=== PATIENT | male | born 1955 | race Caucasian/White ===

== ENCOUNTER 2017-11-10 19:13 | Inpatient (IN) ==
[2017-11-10 20:04] VITALS: BMI 40.5
[2017-11-10] MEDS ORDERED: DOCUSATE SODIUM 100 MG CAPSULE PO PRN (20:35)
[2017-11-10] MEDS ORDERED: ONDANSETRON 4 MG/2 ML INJECTION IVP PRN (20:35)
[2017-11-10] MEDS ORDERED: VANCOMYCIN - PHARMACY CONSULT MC ONE (20:38)
[2017-11-10] MEDS ORDERED: GLUCOSE ORAL GEL 40% 37.5gm PO PRN (20:40)
[2017-11-10] MEDS ORDERED: DEXTROSE 50% SYRINGE 50ml (1 AMP) IVP PRN (20:40)
--- NOTE | 2017-11-10 21:00 | History & Physical Report ---
History of Present Illness Date: 11/11/17 Chief complaint: left leg cellulitis, diabetic foot ulcer HPI: Denzel is a 62 y/o w/ DM, HTN, HLD, CAD s/p stents x 2 who presents to [facility] via direct admission from wound clinic. Patient had left foot treatment last Wed and on Wednesday/Sat started having pain and swelling in left foot which has progressed despite Rocephin and keflex on Wednesday. Patient denies cp, soa, f/c /s, n/v and other constitutional symptoms. Painful to walk Will admit to Hospitalist service for IV Abx and wound care and supportive care. Review of Systems All systems PM: 10-point ROS was reviewed, no additional remarkable complaints except Past Medical History Patient Stated Medical History Migraine Yes Hearing Loss Yes Hypertension Yes Asthma Yes Diabetes Mellitus Type 2 Yes: STEROID INDUCED Osteoarthritis Yes Other Infectious Yes: [facility] Medical History (Last Reviewed 11/10/17 @ 15:41 by Jesse Weiss MA) Osteoarthritis of knee (Chronic Medical) Asthma (Chronic Medical) Obesity (Chronic Medical) Hyperlipidemia (Chronic Medical) Hypertension (Chronic Medical) Diabetes (Chronic Medical) CAD (coronary artery disease) (Chronic Medical) Surgical History: Right knee scope-2004 (Dr. Johnson). L4-L5 diskectomy-2010 ( Dr. Mesfin Parker). Heart cath & angioplasty of left circumflex (01/05/14). Right TKA - 01/29/14. Arthroscopic surgery on Left Knee on 09/07/2014 Family History Updates: Mother w/ h/o DM - Social History Smoking status: Former smoker Medications Home Medications Medication Instructions Recorded Confirmed Type Liraglutide [Victoza 3-Damon] 1.8 mg SQ DAILY #9 12/10/14 11/10/17 History Krill Oil/[place]-3/Dha/Epa [Fish 1 cap PO DAILY #0 12/11/14 History Oil with Krill Softgel] Aspirin 1 tab PO DAILY #0 tab 08/13/15 11/10/17 History raNITIdine HCl [Ranitidine HCl] 150 mg PO DAILY #0 tab 08/13/15 11/10/17 History Insulin Degludec [Tresiba 104 units SQ .COMPLEX 11/10/17 11/10/17 History Flextouch U-200] Naproxen [Aleve] 440 mg PO DAILY 11/10/17 11/10/17 History Allergies Allergy/AdvReac Type Severity Reaction Status Date / Time Iodinated Contrast- Oral and AdvReac Unknown N/V Verified 11/11/17 00:11 IV Dye Exam Vital Signs: Temperature 98.6 F 11/10/17 19:40 Pulse Rate 93 11/10/17 19:40 Respiratory Rate 18 11/10/17 19:40 Blood Pressure 148/74 H 11/10/17 19:40 Pulse Oximetry 94 11/10/17 19:40 Height/Weight/BMI: Height 1.91 m Weight 147.2 kg Body Mass Index 40.5 - Constitutional Present: no acute distress, well nourished, well developed - Routine HEENT Exam Head: Present: normocephalic, atraumatic - Routine Neck Exam Present: supple, full ROM. Absent: JVD - Routine Respiratory Exam Present: CTA bilaterally. Absent: accessory muscle use, respiratory distress - Routine Cardiovascular Exam Present: RRR - Routine Abdominal Exam Present: soft, normoactive bowel sounds, non distended, non tender - Routine Extremities Exam Absent: cyanosis, clubbing - Routine Skin Exam Comments: left foot w/ swelling, warmth and erythema beyond previous demarcation to ankle and somewhat posteriorly proximally to lower tibial shaft area; small superficial ulcer left plantar surface. - Routine Neurological Exam Present: alert, oriented X3, CN II-XII intact - Routine Psychiatric Exam Present: normal affect, normal thought process Results - Labs CBC & Chem 7: 11/11/17 04:02 11/11/17 04:02 Assessment and Plan Assessment and Plan: Assessment 1) Acute Left leg cellulitis 2) Left foot diabetic ulcer 3) DM insulin requiring 4) HTN 5) HLD 6) CAD 7) Asthma Plan: Wound care Zosyn Vancomycin - pharm to manage Carb consistent diet Correctional insulin Home meds as indicated Pain meds - po and IV for breakthrough Prn Colace Hypoglycemic protocol Prn Albuterol I have discussed the plan w/ the patient and he verbalized understanding. 11/11/2017, 6:50 PM-Dr. Feldman I seen and examined the patient. I've reviewed the H&P above and agree. Please see my additions below. Chief complaint is infection of left foot with pain History of present illness: Patient is a pleasant 8-year-old male with poorly controlled diabetes. Has coronary artery disease and had a stent placed in 2015 or 2016. He is currently on aspirin daily. He has had a wound on the left fifth metatarsal head since September. He has been seeing his primary care physician, Dr. Nevarez but last week was referred to the wound care center. Last Wednesday he had the left foot wound debrided and also had a smaller right foot wound on his right great toe debrided. Cultures from the left fifth metatarsal head showed MSSA and strep viridans. Cultures from the right foot revealed MSSA and coag-negative staph. On he developed increased pain in the left foot and his pain progressively worsened over the weekend. He saw his primary care physician on Wednesday and he had erythema and swelling of the foot. He was given a shot of Rocephin and started on Keflex. Yesterday his foot was not doing any better and was extending beyond the marked areas of cellulitis. He was then advised to come in for admission. He was admitted last night and started on vancomycin and Zosyn. Today while receiving Zosyn he did have a pruritic rash on his left shoulder and chest. Zosyn was discontinued. He denies any fevers chills or sweats. He denies any chest pains or palpitations. He has history of asthma but his breathing is stable. He has some chronic constipation. He states his blood sugars are usually in the 190s fasting and thinks that is his average blood sugar nonfasting as well. Past medical history is reviewed and agree with above-he did have a cardiac angiogram and balloon in 2012 and then a stent in [address] Martinez Surgical history reviewed and agree Family history reviewed and agree Social history significant for him being a former smoker Medications reviewed and agree Allergies are to IV contrast, possible allergic reaction with rash to penicillin today Comprehensive review of systems is significant for some mild constipation which is chronic. Otherwise comprehensive review of systems is negative other than the above in history of present illness. On exam the patient is alert and oriented and in no acute distress. HEENT reveals sclerae to be anicteric, pupils are equal, or paroxysmal moist. Neck is supple. Chest is clear to auscultation. Cardiovascular reveals a regular rate and rhythm. Abdomen is soft, obese, nontender nondistended with positive bowel sounds. Extremities are free of clubbing or cyanosis. Right foot reveals an area of ulceration about the size of a nickel on his right great toe. Left foot reveals an ulcer about the size of a dime on the left fifth metatarsal head. There is some serosanguineous/mildly purulent drainage. There is erythema and swelling of the foot with erythema mostly on the dorsum of the foot. It does not extend into the leg. His foot is tender to touch and has increased warmth. He states the tenderness and swelling is better today than yesterday. Impression Left infected diabetic foot wound with cellulitis. MSSA and strep viridans on culture from November 03 Right foot wound without obvious signs of infection Poorly controlled diabetes Coronary artery disease-stable Asthma-stable on current medications Possible allergic reaction with rash to penicillin, no difficulties breathing or blood pressure issues. Plan Zosyn was discontinued because of possible allergic reaction. Dr. Cruz was consulted for diabetic foot wound, she recommends cefazolin. We'll repeat CBC and basic metabolic profile tomorrow. Check C-reactive protein tomorrow. Dr. Kennedy was consulted for wound evaluation and to determine if debridement is needed. Continue the patient's home medications for asthma. Resume NovoLog with meals. Will give Lantus in place of treseba Hold the toes of for now but may need to start if blood sugars are not well- controlled. Hold Aleve case patient needs surgical treatment Lovenox for DVT prophylaxis DVT Prophylaxis: SCD's Resuscitation Status: Full Code - Time spent with patient Time with patient PN: 50 minutes - Physician Narrative Physician: Josselyn Ferreira MD Narrative: Date: 11/10/17 Time: 2056 Hospital Course Summary Disclaimer: The visit summary below is not to be considered part of the above Progress Note.
[2017-11-10] MEDS ORDERED: VANCOMYCIN IV ONE (21:11)
[2017-11-10] MEDS ORDERED: NS IV ONE (21:11)
[2017-11-10] MEDS: NS FLUSH BAG 500ml IV PRN (21:27)
[2017-11-10] MEDS: SALINE FLUSH 10ml SYRINGE IV PRN (21:27)
[2017-11-10] MEDS: MORPHINE SULFATE 4mg INJECTION IVP PRN (21:28)
[2017-11-10] MEDS: PIPERACILLIN/TAZOBACTAM 3.375 GM in NS 100 ML IV SCH (21:32)
[2017-11-10] MEDS: INSULIN ASPART 100unit/ml INJECTION SQ PRN (21:51)
[2017-11-10] MEDS ORDERED: ALBUTEROL 2.5mg/3ml (0.083%) NEB AEROSOL PRN (22:07)
[2017-11-10] MEDS: OXYCODONE/APAP 7.5 MG/325 MG TABLET PO PRN (23:57)
[2017-11-11] MEDS: PIPERACILLIN/TAZOBACTAM 3.375 GM in NS 100 ML IV SCH ×3 (02:04→15:38)
[2017-11-11] MEDS ORDERED: CALCIUM CARBONATE Chewable 750mg TABLET PO PRN ×2 (02:23→15:45)
[2017-11-11] MEDS: MORPHINE SULFATE 4mg INJECTION IVP PRN ×2 (03:04→21:35)
[2017-11-11] MEDS: SALINE FLUSH 10ml SYRINGE IV PRN (03:04)
[2017-11-11] MEDS: INSULIN ASPART 100unit/ml INJECTION SQ PRN ×4 (06:12→21:36)
[2017-11-11] MEDS: OXYCODONE/APAP 7.5 MG/325 MG TABLET PO PRN ×4 (06:13→20:19)
[2017-11-11] MEDS: LEVOTHYROXINE 50 MCG TABLET PO SCH (07:18)
--- NOTE | 2017-11-11 07:57 | Pharmacy Consult-Antibiotics ---
Pharmacy Consult-Vancomycin - Laboratory Information WBC 10.8 T/MM3 (4.5-11.0) 11/11/17 04:02 BUN 14.0 MG/DL (9-20) 11/11/17 04:02 Creatinine 1.0 MG/DL (0.8-1.5) 11/11/17 04:02 - Consult Information Consult noted by Dr Conteh to begin vancomycin therapy on Mr Gonzalez, who is 62 years old and weighs 147kg. He as good renal function and has a diagnosis of a left leg cellulitis. A loading dose of vancomycin 2 grams was given last night. Will begin vancomycin 1500mg IV q8h this morning. Thank you.
[2017-11-11] MEDS ORDERED: NAPROXEN 220 MG TABLET PO SCH (09:00)
[2017-11-11] MEDS ORDERED: LEVOTHYROXINE 50 MCG TABLET PO SCH (09:00)
[2017-11-11] MEDS: RANITIDINE 150 MG TABLET PO SCH (09:04)
[2017-11-11] MEDS: ASPIRIN 81 MG CHEWABLE TABLET PO SCH (09:04)
[2017-11-11] MEDS: MONTELUKAST 10 MG TABLET PO SCH (09:04)
[2017-11-11] MEDS ORDERED: DiphenhydrAMINE 25 MG CAPSULE PO ONE (16:17)
[2017-11-11] MEDS ORDERED: INSULIN DEGLUDEC SQ SCH (18:30)
[2017-11-11] MEDS: INSULIN ASPART 100unit/ml INJECTION SQ SCH (18:38)
[2017-11-11] MEDS ORDERED: CIPROFLOXACIN PB 400 MG/200 ML BAG IV SCH (18:45)
[2017-11-11] MEDS: CEFAZOLIN 2 G in NS 100 ML IV SCH (20:13)
[2017-11-11] MEDS: POLYETHYL GLYCOL 3350 17gm PACKET PO SCH (20:15)
[2017-11-11] MEDS: INSULIN GLARGINE 100unit/ml INJECTION SQ SCH (21:02)
[2017-11-11] MEDS: SIMVASTATIN 20 MG TABLET PO SCH (21:04)
[2017-11-11] MEDS: ZOLPIDEM 10 MG TABLET PO PRN (21:50)
[2017-11-12] MEDS: CEFAZOLIN 2 G in NS 100 ML IV SCH ×3 (02:40→17:47)
[2017-11-12] MEDS: OXYCODONE/APAP 7.5 MG/325 MG TABLET PO PRN ×5 (04:21→21:50)
[2017-11-12] MEDS: LEVOTHYROXINE 50 MCG TABLET PO SCH (05:42)
[2017-11-12] MEDS: INSULIN ASPART 100unit/ml INJECTION SQ PRN ×2 (05:47→21:20)
[2017-11-12] MEDS: ASPIRIN 81 MG CHEWABLE TABLET PO SCH (08:33)
[2017-11-12] MEDS: FENOFIBRATE 160 MG TABLET PO SCH (08:34)
[2017-11-12] MEDS: FEXOFENADINE 180 MG TABLET PO SCH (08:34)
[2017-11-12] MEDS: MONTELUKAST 10 MG TABLET PO SCH (08:34)
[2017-11-12] MEDS: RANITIDINE 150 MG TABLET PO SCH (08:34)
[2017-11-12] MEDS: INSULIN ASPART 100unit/ml INJECTION SQ SCH ×4 (08:35→18:38)
[2017-11-12] MEDS: INSULIN GLARGINE 100unit/ml INJECTION SQ SCH ×2 (08:35→21:20)
[2017-11-12] MEDS: ENOXAPARIN 40 MG/0.4 ML INJECTION SQ SCH (08:35)
[2017-11-12] MEDS: POLYETHYL GLYCOL 3350 17gm PACKET PO SCH (08:35)
--- NOTE | 2017-11-12 09:03 | Progress Note ---
- Date 11/12/17 Subjective: Denzel states that he was able to get "cat naps" last night. He took an Ambien to try to help him sleep b/c the first night he didn't sleep at all. He's mostly upset about his diet - he states that he tried to order the same thing as yesterday but they wouldn't let him. He feels like since he's stuck in the hospital he should be able to order what he wants and eat what he wants. He reported to the nurse that he was bored with the dietitian yesterday and doesn' t want to talk to her again. He does state however that his left foot is looking better, and the redness and swelling is improving. No fevers. He has chronic neuropathy to his feet and can only feel a little bit of pain to his left foot when pressure is applied in the right spot. Objective Vital signs: Temperature 97.8 F 11/12/17 08:19 Pulse Rate 71 11/12/17 08:19 Respiratory Rate 16 11/12/17 08:19 Blood Pressure 146/68 H 11/12/17 08:19 Pulse Oximetry 92 11/12/17 08:19 Height/Weight/BMI: Height 1.91 m Weight 149.9 kg Body Mass Index 40.5 - Constitutional Present: no acute distress, morbidly obese - Routine HEENT Exam Head: Present: normocephalic Eye: Absent: conjunctival icterus, scleral injection - Routine Respiratory Exam Present: CTA bilaterally - Routine Cardiovascular Exam Present: RRR, S1, S2 - Routine Abdominal Exam Present: soft, normoactive bowel sounds, non distended, non tender - Routine Extremities Exam Comments: Left foot has erythema slightly extending beyond the marked line; it is very warm to touch. It is mildly swollen. There is a dressing to his left 5th toe/ base of the 5th MT. There is also a dressing applied to his right great toe. - Routine Back/Spine/Pelvis Exam Back/Spine: Present: full ROM - Routine Skin Exam Present: dry, warm, wounds (Diabetic foot wounds) - Routine Neurological Exam Present: alert, oriented X3 - Routine Psychiatric Exam Present: normal affect, normal thought process, cooperative Results - Labs CBC & Chem 7: 11/12/17 04:19 11/12/17 04:19 Assessment and Plan Assessment and Plan: Assessment Left infected diabetic foot wound with cellulitis. MSSA and strep viridans on culture from November 03 Right foot wound without obvious signs of infection Poorly controlled diabetes with hgb A1c of 9.1% Coronary artery disease, HTN, hyperlipidemia - stable Asthma - stable on current medications Possible allergic reaction with rash to penicillin, no difficulties breathing or blood pressure issues. Plan Continue cefazolin per Dr. Cruz. WBC normal but CRP is elevated at 89. Awaiting Dr. Kennedy's recommendations for wound management. Discussed rationale for carbohydrate controlled diet and controlling blood sugars - pt is not interested in discussing options with dietitian. Daily kcal increased from 2000 to 2400. BGM are consistently elevated so will increase long and short-acting insulin slightly. 11/12/2017-9:20 PM-I reviewed this chart, the patient history, and the SENIOR POLICY ANALYST's/PA 's documented findings as above. We discussed and formulated the assessment and plan as above with the additions below.-Dr. Feldman Patient was seen earlier this evening. The erythema of his left foot is decreased compared to yesterday. It is not as bright red. His foot is a little less swollen. He denies any shortness of breath or chest pain. He is eating and drinking well. He is urinating without difficulty. On exam he is alert and oriented and in no acute distress. Chest is clear to auscultation. Cardiac vascular reveals a regular rate and rhythm. Abdomen is soft and nontender. Left foot shows decreased edema and erythema compared to yesterday. Foot wound is dressed and I did not remove the dressing this evening. Lab work was reviewed and white count is 9.6 with 4% bands and 59% neutrophils. A1c is 9.1. Blood sugars today have ranged from 96-212 showing improved control. C-reactive protein is 89.2. MRI of the foot was limited due to a metallic foreign body in the lateral plantar soft tissue. Despite this limitation there does appear to be osteomyelitis involving the fifth metatarsal head and potentially the proximal phalanx of the fifth toe. Impression and plan Regarding the patient's diabetic foot wound infection, cellulitis, probable osteomyelitis-Dr. Kennedy plans on taking the patient to surgery on Wednesday. Dr. Cruz did see the patient and recommends cephalexin, vancomycin was discontinued. Asthma is stable. Blood sugars show improved control today. DVT Prophylaxis: Lovenox GI Prophylaxis: Rantidine Resuscitation Status: Full Code - Physician Narrative Narrative: Date: 11/12/17 Time: 0859 Hospital Course Summary Disclaimer: The visit summary below is not to be considered part of the above Progress Note. Hospital Course: 11/12/[address] Cruz. WBC normal but CRP is elevated at 89. Awaiting Dr. Kennedy's recommendations for wound management. Discussed rationale for carbohydrate controlled diet and controlling blood sugars - pt is not interested in discussing options with dietitian. Daily kcal increased from 2000 to 2400. BGM are consistently elevated so will increase long and short-acting insulin slightly.
--- NOTE | 2017-11-12 09:35 | Infectious Disease Consult ---
Infectious Disease Consult Date of Consultation: 11/12/17 Requesting Physician: Josselyn Feldman Reason for Consultation: antibiotic recs History of Present Illness: Mr. Gonzalez is a 62-year-old diabetic man who reports that he has had a wound on the left lateral foot near the base of his fifth metatarsal since 09/17/2017. He also has had a wound on the right great toe for some time as well. He says primary care physician in October about these wounds. He had an x-ray done of his feet on 10/26/2017. There was no obvious osteomyelitis. The x-ray of the left foot showed a small metallic foreign object in the lateral portion of his foot. He was seen in the wound clinic at [facility] on November [address] Rice. Both wounds were cultured and they both grew out methicillin susceptible staph aureus with some other skin booker noted. He reports that after the left foot wound was debrided he developed increased redness pain and swelling there. He was seen by his primary doctor on Wednesday and given Rocephin as well as Keflex. He continued to have redness and swelling in his foot. He was admitted to [facility] on Wednesday, November 10. He tells me that he prefer to be admitted somewhere and [place] however all of the hospitals there were full. On admission his white blood cell count was normal. He has not had fever or chills. He was initially started on vancomycin and Zosyn. Yesterday he was noted to have a diffuse erythematous rash on his trunk and upper extremities which was thought to be due to the Zosyn. The patient tells me that he thinks his rash was because he was not given his Barb yesterday. I spoke with Dr. Feldman yesterday evening and she reviewed his wound cultures. I recommended Ancef. He continues on vancomycin as well. The redness on the left foot is improving. He states that he did not have any redness that extended beyond his ankle area. He reports numbness in his lower extremities related to his diabetes however he does have pain and tenderness near this wound. He tells me that he is not happy with his current diet. Per records he was not willing to discuss a diabetic diet with the dietitian. He apparently has a history of being on chronic prednisone for 20 years for asthma and subsequently has developed diabetes. Medications Home Medications Medication Instructions Recorded Confirmed Type Liraglutide [Victoza 3-Damon] 1.8 mg SQ DAILY #9 12/10/14 11/10/17 History Krill Oil/[place]-3/Dha/Epa [Fish 1 cap PO DAILY #0 12/11/14 History Oil with Krill Softgel] Aspirin 1 tab PO DAILY #0 tab 08/13/15 11/10/17 History raNITIdine HCl [Ranitidine HCl] 150 mg PO DAILY #0 tab 08/13/15 11/10/17 History Insulin Degludec [Tresiba 104 units SQ .COMPLEX 11/10/17 11/10/17 History Flextouch U-200] Naproxen [Aleve] 440 mg PO DAILY 11/10/17 11/10/17 History Allergies Allergy/AdvReac Type Severity Reaction Status Date / Time Iodinated Contrast- Oral and AdvReac Unknown N/V Verified 11/11/17 00:11 IV Dye PFS Patient Stated Medical History Migraine Yes Hearing Loss Yes Hypertension Yes Asthma Yes Diabetes Mellitus Type 2 Yes: STEROID INDUCED Osteoarthritis Yes Other Infectious Yes: [facility] Medical History (Last Reviewed 11/10/17 @ 15:41 by Jesse Weiss MA) Osteoarthritis of knee (Chronic Medical) Asthma (Chronic Medical) Obesity (Chronic Medical) Hyperlipidemia (Chronic Medical) Hypertension (Chronic Medical) Diabetes (Chronic Medical) CAD (coronary artery disease) (Chronic Medical) Surgical History: Right knee scope-2004 (Dr. Johnson). L4-L5 diskectomy-2010 ( Dr. Mesfin Martínez). Heart cath & angioplasty of left circumflex (01/05/14). Right TKA - 01/29/14. 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 Absent: arthralgias - Integumentary/Breasts Integumentary: Present: rash (yesterday, pruritic, now improved) - Neurological Neurological: Present: numbness (LEs). Absent: headache(s) - Allergic/Immunologic Allergic/Immunologic: Present: other (seasonal allergies) Exam Vital Signs: Temperature 97.8 F 11/12/17 08:19 Pulse Rate 71 11/12/17 08:19 Respiratory Rate 16 11/12/17 08:19 Blood Pressure 146/68 H 11/12/17 08:19 Pulse Oximetry 92 11/12/17 08:19 Height/Weight/BMI: Height 1.91 m Weight 149.9 kg Body Mass Index 40.5 - Constitutional Present: no acute distress, well nourished, well developed - Routine HEENT Exam Head: Present: normocephalic, atraumatic Eye: Present: EOMI, PERRL ENT: Present: mucous membranes moist, oropharynx clear, dentition normal - Routine Neck Exam Present: supple - Routine Respiratory Exam Present: CTA bilaterally - Routine Cardiovascular Exam Present: RRR - Routine Abdominal Exam Present: soft, normoactive bowel sounds, non distended, non tender. Absent: rebound, guarding - Routine Extremities Exam Present: edema (1+ L foot/ankle). Absent: cyanosis, clubbing - Routine Skin Exam Present: intact, rash (mild, resolving rash on upper extremities) Comments: Superficial wound R great toe, which looks clean, without signs of infection. No surrounding edema. L foot has edema and he has a wound on the plantar surface of the 5th MT head with purulence and erythema. He has erythema extending up over his L foot, but not extending to ankle or lower leg. - Routine Neurological Exam Present: alert, oriented X3, CN II-XII intact. Absent: motor deficit - Routine Psychiatric Exam Present: normal affect Results - Labs CBC & Chem 7: 11/12/17 04:19 11/12/17 04:19 Impression: diabetic foot infection L foot with cellulitis. S/p debridement on 11/03/17. Wound culture 11/03 with MSSA, S. viridans. X-ray 10/26 L foot with small metallic object (?staple) but this is located more posterior than where his wound is. Diabetic foot infection R great toe, appears superficial. Wound culture with MSSA from 11/03. DM II, IR Obesity Hypothyroidism Asthma with h/o prolonged prednisone use S/p R TKA Rash yesterday presumed secondary to Zosyn Recommendation: Would continue Ancef and elevate L foot. He still has a lot of erythema and tenderness. Agree with surgery consult. I will order an MRI to evaluate for osteomyelitis. Discussed with Dr. Feldman.
[2017-11-12] MEDS ORDERED: GADOTERIDOL 279.3mg/ml - 10ml vial IVP ONE (10:59)
[2017-11-12] MEDS ORDERED: SALINE FLUSH 10ml SYRINGE ONE (10:59)
[2017-11-12] MEDS: MORPHINE SULFATE 4mg INJECTION IVP PRN (11:48)
--- NOTE | 2017-11-12 12:02 | Magnetic Resonance Report ---
Indication: diabetic wound infection PROCEDURE: MR foot LT wo/w con: Encounter: Initial Comparison: Left foot radiographs dated October 26, 2017 Technique: Multiplanar multisequence MR imaging of the left foot was performed with and without contrast. Contrast: 30 mL ProHance Findings: The metallic foreign body in the lateral plantar soft tissues, causes artifact, disrupting the normal magnetic field and limiting fat suppression in the lateral mid foot area. Unfortunately this is in the area of clinical concern. Despite this limitation there does appear to be abnormal T1 hypointense, T2 hyperintense signal and enhancement within the fifth metatarsal head and proximal phalanx of the fifth toe. There is adjacent soft tissue swelling and edema. The remaining bone marrow signal intensity is grossly normal. No acute fracture identified. The flexor and extensor tendons are grossly intact. Postcontrast images show no evidence of ring-enhancing abscess. There is significant plantar soft tissue thickening and induration below the fifth metatarsophalangeal joint. Impression: Limited exam due to the metallic foreign body in the lateral plantar soft tissues. Despite this limitation there does appear to be osteomyelitis involving the fifth metatarsal head and potentially the proximal phalanx of the fifth toe. .
--- NOTE | 2017-11-12 13:06 | General Surgery Consult Note ---
Consult date: 11/12/17 Attending Physician: Josselyn Feldman MD Reason for consult: wound care [facility] Patient Stated Medical History Migraine Yes Hearing Loss Yes Hypertension Yes Asthma Yes Diabetes Mellitus Type 2 Yes: STEROID INDUCED Osteoarthritis Yes Other Infectious Yes: [facility] Medical History (Last Reviewed 11/10/17 @ 15:41 by Jesse Weiss MA) Osteoarthritis of knee (Chronic Medical) Asthma (Chronic Medical) Obesity (Chronic Medical) Hyperlipidemia (Chronic Medical) Hypertension (Chronic Medical) Diabetes (Chronic Medical) CAD (coronary artery disease) (Chronic Medical) Surgical History: Right knee scope-2004 (Dr. Johnson). L4-L5 diskectomy-2010 ( Dr. Mesfin Martínez). Heart cath & angioplasty of left circumflex (01/05/14). Right TKA - 01/29/14. 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 Medications Home Medications Medication Instructions Recorded Confirmed Type Liraglutide [Victoza 3-Damon] 1.8 mg SQ DAILY #9 12/10/14 11/10/17 History Krill Oil/[place]-3/Dha/Epa [Fish 1 cap PO DAILY #0 12/11/14 History Oil with Krill Softgel] Aspirin 1 tab PO DAILY #0 tab 08/13/15 11/10/17 History raNITIdine HCl [Ranitidine HCl] 150 mg PO DAILY #0 tab 08/13/15 11/10/17 History Insulin Degludec [Tresiba 104 units SQ .COMPLEX 11/10/17 11/10/17 History Flextouch U-200] Naproxen [Aleve] 440 mg PO DAILY 11/10/17 11/10/17 History Allergies Allergy/AdvReac Type Severity Reaction Status Date / Time Iodinated Contrast- Oral and AdvReac Unknown N/V Verified 11/11/17 00:11 IV Dye Review of Systems 10-point ROS: negative except for HPI and the following: - General General: Present: fever - Respiratory Respiratory: Present: other (seasonal allergies) - Musculoskeletal Musculoskeletal: Present: other (foot pain, difficult to walk) - Vital Signs Last Vital Signs Temp 97.8 F 11/12/17 08:19 Pulse 71 11/12/17 08:19 Resp 16 11/12/17 08:19 BP 146/68 H 11/12/17 08:19 Pulse Ox 92 11/12/17 08:19 - Laboratory Result Diagrams: 11/12/17 04:19 11/12/17 04:19 General Surgery Results - Results Labs: 11/12/17 04:19 11/12/17 04:19 Hospital Course Summary Disclaimer: The visit summary below is not to be considered part of the above Progress Note. Hospital Course: 11/12/[address] Cruz. WBC normal but CRP is elevated at 89. Awaiting Dr. Kennedy's recommendations for wound management. Discussed rationale for carbohydrate controlled diet and controlling blood sugars - pt is not interested in discussing options with dietitian. Daily kcal increased from 2000 to 2400. BGM are consistently elevated so will increase long and short-acting insulin slightly.
--- NOTE | 2017-11-12 17:48 | Consultation ---
DATE OF CONSULTATION 11/12/2017 FINDINGS Mr. Gonzalez is a 62-year-old gentleman whom I was asked to see today as a result of a left diabetic foot ulcer. The patient was very unhappy upon entering his room. He informed me that his "foot was fine until the wound care cut on his foot." Upon further questioning the patient he actually informs me that this process began in September of last year. The patient states that he began to notice that there was some drainage coming forth from the left foot at that time. Patient states that he then had sought out medical attention and was seen through our wound center here at [facility]. Apparently he had undergone some form of a debridement in the recent past. Patient states that shortly after this debridement his "foot got really bad." Patient states that the foot began to "swell and become quite red and painful in nature." Patient states that it is quite painful to ambulate. PAST MEDICAL HISTORY, PAST SURGICAL HISTORY, MEDICATIONS, ALLERGIES, SOCIAL HISTORY, FAMILY HISTORY, REVIEW OF SYSTEMS Performed by my nurse practitioner, Dallas Cameron APRN. PHYSICAL EXAMINATION GENERAL: Mr. Gonzalez is a 62-year-old gentleman who did not appear to be in acute distress but was definitely not in very good spirits when seen earlier today on rounds. VITAL SIGNS: Temperature 98.3, pulse 61, respirations 18, blood pressure 135/67 , SAO2 94% on room air. HEENT: Normocephalic. Pupils are equally round and react to light and accommodation. CHEST: Clear to auscultation bilaterally. HEART: Regular rate and rhythm. Normal S1 and S2 without gallops, murmurs or clicks. ABDOMEN: Palpation of the abdomen reveals it to be soft and nontender. I do not appreciate any evidence for hepatosplenomegaly nor abnormal masses. EXTREMITIES: Attention was focused to the left foot. There was significant erythema and edema involving the lateral aspect of the left foot. Upon visualization one see a small opening overlying the fifth metatarsal head. The patient was exquisitely tender. With just simply placing a hand gently on the skin the patient would complain of severe pain. I was able to stick a Q-tip within this open wound and advance it towards the fifth metatarsal head. The patient complained of severe pain and therefore examination was somewhat limited but I could feel as if I was probing the fifth metatarsal head. There did appear to be some necrotic material within the open wound. There did not appear to be an underlying abscess cavity and the wound was clearly draining on its own behalf through this opening that was on the order about 8 mm in diameter upon the plantar aspect of the foot overlying the fifth metatarsal head. Medial aspect of the foot was without evidence for marked erythema nor tenderness. Upon palpation the patient was found have a quite strong dorsalis pedis pulse. Foot was warm to touch. NEURO: Cranial nerves II-XII grossly intact. Patient is without focal motor or sensory deficits. LABORATORY/RADIOGRAPHIC EVALUATION The patient had a CBC yesterday and today. White count yesterday was 10.8. White count today remains stable at 9.6. CMP was obtained today and his glucose was elevated at 175. HgA1c was elevated 9.1. The patient did have an MRI of his foot to rule out osteomyelitis. One could see a metallic foreign body within the lateral plantar soft tissues. This did limit the examination as a result of artifact. Despite this limitation there does appear to be a component of osteomyelitis involving the fifth metatarsal head and potentially the proximal phalanx of the fifth toe. I am uncertain whether or not the patient had a silver dressing placed within the open wound prior to his MRI. ASSESSMENT 62-year-old gentleman with left diabetic foot ulcer most likely containing foreign body. Patient with probable associated osteomyelitis. PLAN Will request that tomorrow morning the nursing staff remove dressing from left foot and proceed by obtaining a plain film of the left foot to better delineate the exact location of this reported foreign body. Recommend continuing with ongoing antibiotics for osteomyelitis. Infectious Disease has seen the patient and has given forth antibiotic recommendations. The patient is on Ancef at this time. It does appear that vancomycin has been discontinued from reviewing the DEC. From a surgical standpoint I would recommend that on Wednesday we proceed with exploration of this left diabetic foot ulcer and proceed with excisional surgical debridement as indicated and removal of foreign body. Would recommend continuing with ongoing antibiotics over the course of this weekend. ROCK
[2017-11-12] MEDS: SIMVASTATIN 20 MG TABLET PO SCH (21:26)
[2017-11-13] MEDS: CEFAZOLIN 2 G in NS 100 ML IV SCH ×3 (00:57→17:22)
[2017-11-13] MEDS: ZOLPIDEM 10 MG TABLET PO PRN (00:58)
[2017-11-13] MEDS: LEVOTHYROXINE 50 MCG TABLET PO SCH (07:03)
[2017-11-13] MEDS: POLYETHYL GLYCOL 3350 17gm PACKET PO SCH (09:00)
[2017-11-13] MEDS: ENOXAPARIN 40 MG/0.4 ML INJECTION SQ SCH (09:00)
[2017-11-13] MEDS: FEXOFENADINE 180 MG TABLET PO SCH (09:01)
[2017-11-13] MEDS: RANITIDINE 150 MG TABLET PO SCH (09:01)
[2017-11-13] MEDS: ASPIRIN 81 MG CHEWABLE TABLET PO SCH (09:01)
[2017-11-13] MEDS: FENOFIBRATE 160 MG TABLET PO SCH (09:01)
[2017-11-13] MEDS: ACETAMINOPHEN 325 MG TABLET PO PRN (09:01)
[2017-11-13] MEDS: OXYCODONE/APAP 7.5 MG/325 MG TABLET PO PRN ×2 (09:02→20:05)
[2017-11-13] MEDS: MONTELUKAST 10 MG TABLET PO SCH (09:02)
[2017-11-13] MEDS: INSULIN ASPART 100unit/ml INJECTION SQ SCH ×3 (10:12→16:36)
[2017-11-13] MEDS: INSULIN GLARGINE 100unit/ml INJECTION SQ SCH ×2 (10:18→20:01)
--- NOTE | 2017-11-13 11:20 | Progress Note ---
- Date 11/13/17 Subjective: 62 y/o male with DM, HTN, HLD, CAD s/p stents x 2 who presents to [facility] on via direct admission from wound clinic. Patient had left foot treatment last Wed and on Wednesday/Sat started having pain and swelling in left foot which has progressed despite Rocephin and keflex on Wednesday. Patient denies cp, soa , f/c/s, n/v and other constitutional symptoms. Painful to walk. Pt admitted to Hospitalist service for IV Abx and wound care and supportive care. 11/12/17: Denzel states that he was able to get "cat naps" last night. He took an Ambien to try to help him sleep b/c the first night he didn't sleep at all. He's mostly upset about his diet - he states that he tried to order the same thing as yesterday but they wouldn't let him. He feels like since he's stuck in the hospital he should be able to order what he wants and eat what he wants. He reported to the nurse that he was bored with the dietitian yesterday and doesn' t want to talk to her again. He does state however that his left foot is looking better, the redness and swelling is improving. No fevers. He has chronic neuropathy to his feet and can only feel a little bit of pain to his left foot when pressure is applied in the right spot. This morning he is complaining of a hot flash. He states he's a bit sweaty. He denies any chills. He also has a headache and has recently been given something for that. He does report that it is getting better. His pain in his foot is tolerable at present. He denies shortness of breath or chest pain. He does have intermittent nausea. He has not had any vomiting. He states this is all because he's out of his routine. He did have a bowel movement yesterday. Objective Vital signs: Temperature 98.4 F 11/13/17 08:51 Pulse Rate 69 11/13/17 08:51 Respiratory Rate 11/13/17 08:51 Blood Pressure 141/73 H 11/13/17 08:51 Pulse Oximetry 93 11/13/17 08:51 Height/Weight/BMI: Height 1.91 m Weight 151.9 kg Body Mass Index 40.5 Comments: Gen: alert and oriented. NAD. Conversive Skin: warm and moist, Left foot wound is erythematous and swollen. HEENT: NC/AT PERRL, EOMI, Sclera,lids and conjunctiva wnl. MMM. OP clear. Neck: supple. No JVD. Carotids 2+ without bruits Lungs: clear. No rales, rhonchi or wheezes CV: regular rate and rhythm. No murmur, rub or gallop No edema. Pedal pulses are good Abd: Obese, soft. +BS. NT/ND MS: Good strength and ROM. Neuro: no focal deficit. Results - Labs CBC & Chem 7: 11/12/17 04:19 11/12/17 04:19 Assessment and Plan Assessment and Plan: Assessment and Plan: 1. Left infected diabetic foot wound with cellulitis. -MSSA and strep viridans on culture from November 03 -Dr. Cruz consulted.-recommend Cefazolin started 11/11/17. -Dr. Kennedy consulted-Plan to take to OR on Wednesday for I&D. -MRI on 11/12/17: Impression: Limited exam due to the metallic foreign body in the lateral plantar soft tissues. Despite this limitation there does appear to be osteomyelitis involving the fifth metatarsal head and potentially the proximal phalanx of the fifth toe. -CRP 89 on 11/12/17. 2. Right foot wound without obvious signs of infection 3. Poorly controlled diabetes with hgb A1c of 9.1% -On Lantus 52 units BID -On Novolog 30 units with meals. 4. Coronary artery disease -h/o stents -On asa, statin 5. HTN -fairly well controlled on Metoprolol 25mg BID. 6. Hyperlipidemia -On statin and fenofibrate 7. Asthma -stable on current medications 8. Possible allergic reaction with rash to penicillin, no difficulties breathing or blood pressure issues. 9. Prophylaxis -Lovenox 40mg SQ daily -Zantac 150mg daily - Physician Narrative Narrative: Date: 11/13/17 Time: 1117 Hospital Course Summary Disclaimer: The visit summary below is not to be considered part of the above Progress Note. Hospital Course: 11/12/[address] Cruz. WBC normal but CRP is elevated at 89. Awaiting Dr. Kennedy's recommendations for wound management. Discussed rationale for carbohydrate controlled diet and controlling blood sugars - pt is not interested in discussing options with dietitian. Daily kcal increased from 1999 to 2400. BGM are consistently elevated so will increase long and short-acting insulin slightly.
--- NOTE | 2017-11-13 12:20 | Progress Note ---
DATE 11/13/2017 HISTORY The patient does continue to have some pain in his left foot. The patient did undergo some plain x-rays of the left foot this morning to try to demonstrate a foreign body. The patient states that the pain is worse since he has had the x- rays. PHYSICAL EXAMINATION VITAL SIGNS: Temperature is 98.4 degrees Fahrenheit oral. Pulse is 69. Respiratory rate is 18. Blood pressure is 141/73. Oxygen saturation is 93% on room air. EXTREMITIES: The patient does have redness and swelling at the lateral aspect of the left foot. There is an ulcer at the plantar surface of the left foot beneath the fifth metatarsal head. LABORATORY DATA White blood cell count was 9600 with 4 bands yesterday. IMAGING DATA The patient did have an MRI of the left foot on 11/12/2017. This does appear to demonstrate a metallic foreign body in the lateral plantar soft tissues. Despite this limitation, there does appear to be some osteomyelitis involving the fifth metatarsal head and possibly the proximal phalanx of the fifth toe. IMPRESSION 1. Cellulitis at left foot. 2. Ulcer at plantar surface of the left foot beneath the fifth metatarsal head. 3. Metallic foreign body at lateral plantar surface of left foot demonstrated on 11/12/2017 MRI of the left foot. 4. Possible osteomyelitis involving the fifth metatarsal head and possibly the proximal phalanx of the fifth toe demonstrated on 11/12/2017 MRI of the left foot. 5. Type 2 insulin-requiring diabetes mellitus. PLAN 1. Continue cefazolin started on 11/11/2017 at the recommendation of Dr. Cruz. 2. Continue treatment of diabetes mellitus. 3. Possible operative treatment for removal of metallic foreign body or debridement of osteomyelitis by Dr. Kennedy next week. [facility]OSPITALMarisa
[2017-11-13] MEDS: NS FLUSH BAG 500ml IV PRN (17:22)
[2017-11-13] MEDS: SIMVASTATIN 20 MG TABLET PO SCH (20:01)
[2017-11-14] MEDS: CEFAZOLIN 2 G in NS 100 ML IV SCH ×3 (00:06→19:22)
[2017-11-14] MEDS: ZOLPIDEM 10 MG TABLET PO PRN ×2 (00:06→23:25)
[2017-11-14] MEDS: APAP/ASA/Caffeine 1 TAB PO PRN ×3 (00:06→23:25)
[2017-11-14] MEDS: OXYCODONE/APAP 7.5 MG/325 MG TABLET PO PRN (00:49)
[2017-11-14] MEDS: LEVOTHYROXINE 50 MCG TABLET PO SCH (05:58)
[2017-11-14] MEDS: INSULIN ASPART 100unit/ml INJECTION SQ SCH ×3 (08:46→19:23)
[2017-11-14] MEDS: ENOXAPARIN 40 MG/0.4 ML INJECTION SQ SCH (08:46)
[2017-11-14] MEDS: RANITIDINE 150 MG TABLET PO SCH (08:47)
[2017-11-14] MEDS: FEXOFENADINE 180 MG TABLET PO SCH (08:47)
[2017-11-14] MEDS: ASPIRIN 81 MG CHEWABLE TABLET PO SCH (08:47)
[2017-11-14] MEDS: FENOFIBRATE 160 MG TABLET PO SCH (08:47)
[2017-11-14] MEDS: SALINE FLUSH 10ml SYRINGE IV PRN ×2 (08:49→19:26)
--- NOTE | 2017-11-14 09:15 | Progress Note ---
- Date 11/14/17 Subjective: Mr. Gonzalez is seen today in follow up for his left foot cellulitis and diabetes type II. He is seen while resting in bed, eating breakfast. He complains of a generalized headache similar to prior headaches and expresses frustration that "no one" will give him Excedrin for it. He believes his headaches are secondary to the narcotic pain control he is requiring for his left foot pain. He also expresses significant frustration with the inability to get brown sugar with his oatmeal. He admits to feeling like "no one" is communicating with his regarding his diagnosis or care plan. Extensive time was spent discussing his current diagnosis including review of laboratory results and imaging. His recent foot x-ray was displayed in the room with correlation of his current foot infection and the noted foreign body at the head of the 4th metatarsal. His questions were answered and is expresses gratitude for the time and information provided. He continues on cefazolin for his current cellulitis and is awaiting further evaluation by Dr. Kennedy to determine if surgical exploration is warranted. His appetite is stable and he is given permission to include brown sugar on his oatmeal as his blood sugars have been relatively well controlled and this appears to be a big point of frustration for him. Bowels are moving. He denies any other complaints or concerns including no chest pain, shortness of breath, abdominal pain, nausea, vomiting or dysuria. MD: Mr. Gonzalez was interviewed by me. He continues to have a mild FUENTES but it is better than yesterday. He does state he is eating better. His pain in the foot is mostly controlled. He denies SOA, Cough, CP, Palp. No N/V/D/C. Objective Vital signs: Temperature 97.7 F 11/14/17 07:35 Pulse Rate 61 11/14/17 07:35 Respiratory Rate 16 11/14/17 07:35 Blood Pressure 134/69 11/14/17 07:35 Pulse Oximetry 98 11/14/17 07:35 Height/Weight/BMI: Height 6 ft 3 in Weight 324 lb 15.382 oz Body Mass Index 40.5 Comments: sitting up in bed, eating. MD: Pt examined by me. He is alert and oriented in no acute distress. Skin is warm and dry. His left lateral foot has mild increase in his erythema. HEENT is unremarkable. Lungs are clear. Heart is regular. No murmur. He has no lower extremity edema. His abdomen is soft, nontender with positive bowel sounds. He moves all extremities. He has no focal deficits. - Constitutional Present: no acute distress, well nourished, well developed, obese, cooperative Comments: frustrated - Routine HEENT Exam Head: Present: normocephalic, atraumatic Eye: Present: PERRL. Absent: conjunctival icterus ENT: Present: mucous membranes moist, dentition normal - Routine Respiratory Exam Present: CTA bilaterally. Absent: rhonchi, stridor, wheezes, crackles - Routine Cardiovascular Exam Present: RRR, S1, S2 - Routine Abdominal Exam Present: soft, normoactive bowel sounds, non distended, non tender Comments: obese - Routine Extremities Exam Present: no edema, pulses intact Comments: cellulititis noted to extend beyond the pen markings on the dorsal aspect of his left foot without red streaking; bandage to plantar surface of foot intact, clean and dry and was not removed for wound inspection at this time. - Routine Back/Spine/Pelvis Exam Back/Spine: Present: full ROM. Absent: vertebral tenderness - Routine Musculoskeletal Exam Musculoskeletal: Present: no clubbing or cyanosis, moving extremities well - Routine Skin Exam Present: dry, warm. Absent: jaundice Comments: afebrile. - Routine Neurological Exam Present: alert, oriented X3, moving all extremities, hearing grossly intact, normal speech. Absent: facial asymmetry - Routine Lymphatic Exam Lymphatic: Absent: lymphedema - Routine Psychiatric Exam Present: cooperative Comments: frustrated Results - Labs CBC & Chem 7: 11/14/17 03:49 11/14/17 03:49 - Impressions Date of Exam: 11/12/17 Type of Exam(s): MR foot LT wo/w con Reason for Exam(s): diabetic wound infection Findings: The metallic foreign body in the lateral plantar soft tissues, causes artifact, disrupting the normal magnetic field and limiting fat suppression in the lateral mid foot area. Unfortunately this is in the area of clinical concern. Despite this limitation there does appear to be abnormal T1 hypointense, T2 hyperintense signal and enhancement within the fifth metatarsal head and proximal phalanx of the fifth toe. There is adjacent soft tissue swelling and edema. The remaining bone marrow signal intensity is grossly normal. No acute fracture identified. The flexor and extensor tendons are grossly intact. Postcontrast images show no evidence of ring-enhancing abscess. There is significant plantar soft tissue thickening and induration below the fifth metatarsophalangeal joint. Impression: Limited exam due to the metallic foreign body in the lateral plantar soft tissues. Despite this limitation there does appear to be osteomyelitis involving the fifth metatarsal head and potentially the proximal phalanx of the fifth toe. Date of Exam: 11/12/17 Ordering Provider: Annette Cruz MD Assessment and Plan (1) Cellulitis Current visit: Yes Status: Acute (2) Diabetes Current visit: No Status: Chronic Assessment and Plan: Assessment and Plan - 11/14/17 (Mirakian). 1. Left infected diabetic foot wound with cellulitis and concern for osteomyelitis. -MSSA and strep viridans on culture from November 03 -Dr. Cruz consulted.-recommend Cefazolin started 11/11/17 - will continue. Some extension of erythema beyond skin markings noted to dorsal foot. -Dr. Kennedy consulted-Plan to take to OR on Wednesday for I&D. -Continue pain control. 2. Right foot wound without obvious signs of infection -Continue to monitor closely. 3. Poorly controlled diabetes with hgb A1c of 9.1% -Blood sugars fairly well controlled. Continue on Lantus 52 units BID and Novolog 30 units with meals. -Continue to monitor blood sugars closely. -Patient request for brown sugar with oatmeal in morning was authorized. Sliding scale insulin as indicated. 4. Coronary artery disease -h/o stents; Continue on asa and statin. 5. HTN -fairly well controlled on Metoprolol 25mg BID. Continue to monitor closely. 6. Hyperlipidemia -On statin and fenofibrate 7. Asthma -stable on current medications 8. Possible allergic reaction with rash to penicillin, no difficulties breathing or blood pressure issues. 9. Prophylaxis -Lovenox 40mg SQ daily -Zantac 150mg daily. MD: the patient was interviewed and examined by me. My exam was documented above. I have reviewed his notes, labs and imaging. I have reviewed the assessment and plan as state above and agree with PA documentation. DVT Prophylaxis: Lovenox GI Prophylaxis: Rantidine Resuscitation Status: Full Code - Time spent with patient Time with patient PN: 35 minutes Coordination of Care: >50% of visit spent providing counseling/coordination of care - Physician Narrative Physician: Romelia Mishra MD Narrative: Date: 11/14/17 Time: 0908 Hospital Course Summary Disclaimer: The visit summary below is not to be considered part of the above Progress Note. Hospital Course: 11/12/[address] Cruz. WBC normal but CRP is elevated at 89. Awaiting Dr. Kennedy's recommendations for wound management. Discussed rationale for carbohydrate controlled diet and controlling blood sugars - pt is not interested in discussing options with dietitian. Daily kcal increased from 2000 to 2400. BGM are consistently elevated so will increase long and short-acting insulin slightly. Assessment and Plan - 11/14/17 (Mirakian). Left infected diabetic foot wound with cellulitis and concern for osteomyelitis. MSSA and strep viridans on culture from November 03. Dr. Cruz consulted.-recommend Cefazolin started 11/11/17 - will continue. Some extension of erythema beyond skin markings noted to dorsal foot. Dr. Kennedy consulted- Plan to take to OR on Wednesday for I&D. Continue pain control.Right foot wound without obvious signs of infection. Continue to monitor closely. Poorly controlled diabetes with hgb A1c of 9.1%. Blood sugars fairly well controlled. Continue on Lantus 52 units BID and Novolog 30 units with meals. Continue to monitor blood sugars closely. Patient request for brown sugar with oatmeal in morning was authorized. Sliding scale insulin as indicated. Prophylaxis-Lovenox 40mg SQ daily,Zantac 150mg daily.
[2017-11-14] MEDS ORDERED: SENNA + DOCUSATE TABLET PO PRN (09:25)
[2017-11-14] MEDS: POLYETHYL GLYCOL 3350 17gm PACKET PO SCH (10:21)
[2017-11-14] MEDS: MONTELUKAST 10 MG TABLET PO SCH (10:21)
[2017-11-14] MEDS: INSULIN GLARGINE 100unit/ml INJECTION SQ SCH ×2 (10:21→20:52)
--- NOTE | 2017-11-14 10:36 | XRay Report ---
Indication: foreign body PROCEDURE: XR foot LT min 3V: Encounter: Initial Comparison: Radiograph dated October 26, 2017 Findings: There is no acute fracture, dislocation or malalignment identified. Linear metallic foreign body is again noted in the plantar soft tissues beneath the fourth metatarsal base. Chronic hindfoot degenerative change. Impression: Unchanged appearance of the plantar foreign body. .
[2017-11-14] MEDS: SIMVASTATIN 20 MG TABLET PO SCH (20:52)
[2017-11-15] MEDS: CEFAZOLIN 2 G in NS 100 ML IV SCH ×3 (01:47→18:15)
[2017-11-15] MEDS: LEVOTHYROXINE 50 MCG TABLET PO SCH (05:30)
--- NOTE | 2017-11-15 07:00 | Progress Note ---
DATE OF VISIT 11/14/2017 REASON FOR VISIT Covering surgical care for Dr. Kennedy. SUBJECTIVE Denzel feels like the pain in his left foot has gone. His had noticed some drainage earlier and was concerned that his bandage would need changed. He is wondering if he is having surgery tomorrow. OBJECTIVE VITALS: Afebrile with stable vitals on room air. GENERAL: The patient is awake, alert, in no acute distress. EXTREMITIES: His bandage in the left groin remains in place with Aquacel silver and a Mepilex. There is another area of possible drainage more on the dorsum of the foot, so an additional Mepilex was placed. His cellulitis is essentially stable from the esqueda on the skin. His Mepilex remains in place at the ball of his right foot. IMPRESSION 1. Left foot cellulitis. 2. Ulcer of the left lateral foot. 3. Metallic foreign body of the left foot. 4 Possible osteomyelitis of the fifth metatarsal head. 5. Type 2 insulin-requiring diabetes mellitus. PLAN 1. Continue antibiotics. 2. NPO at midnight. 3. The patient is on the surgery schedule for tomorrow afternoon by Dr. Kennedy. [facility] SYSTEMMarisa
[2017-11-15] MEDS: INSULIN ASPART 100unit/ml INJECTION SQ SCH ×3 (07:22→18:21)
[2017-11-15] MEDS: ENOXAPARIN 40 MG/0.4 ML INJECTION SQ SCH (08:29)
[2017-11-15] MEDS ORDERED: INSULIN GLARGINE 100unit/ml INJECTION SQ ONE (08:35)
[2017-11-15] MEDS: INSULIN GLARGINE 100unit/ml INJECTION SQ SCH ×2 (08:36→21:15)
[2017-11-15] MEDS: POLYETHYL GLYCOL 3350 17gm PACKET PO SCH (08:37)
[2017-11-15] MEDS: ASPIRIN 81 MG CHEWABLE TABLET PO SCH (08:44)
[2017-11-15] MEDS: RANITIDINE 150 MG TABLET PO SCH (08:45)
[2017-11-15] MEDS: FENOFIBRATE 160 MG TABLET PO SCH (08:45)
[2017-11-15] MEDS: MONTELUKAST 10 MG TABLET PO SCH (08:46)
[2017-11-15] MEDS: FEXOFENADINE 180 MG TABLET PO SCH (08:48)
[2017-11-15] MEDS: NS FLUSH BAG 500ml IV PRN (09:55)
--- NOTE | 2017-11-15 10:57 | Progress Note ---
- Date 11/15/17 Subjective: Denzel is a little upset because he is NPO for surgery this afternoon, and because we don't know an exact time yet. He is very thirsty. He states that he was finally able to sleep last night. He denies any new complaints such as difficulty breathing, abdominal pain or GI distress. Objective Vital signs: Temperature 96.3 F L 11/15/17 07:00 Pulse Rate 56 L 11/15/17 07:00 Respiratory Rate 16 11/15/17 07:00 Blood Pressure 138/83 11/15/17 07:00 Pulse Oximetry 97 11/15/17 07:00 Height/Weight/BMI: Height 1.91 m Weight 146.9 kg Body Mass Index 40.5 - Constitutional Present: no acute distress, well nourished, well developed, obese - Routine HEENT Exam Head: Present: normocephalic Eye: Present: PERRL - Routine Respiratory Exam Present: CTA bilaterally - Routine Cardiovascular Exam Present: RRR, S1, S2 - Routine Abdominal Exam Present: soft, normoactive bowel sounds, non distended, non tender - Routine Extremities Exam Present: edema (left foot, associated with cellulitis) - Routine Skin Exam Present: erythema (left foot cellulitis with erythema within the bounds of the markings. There is a dressing on the dorsal aspect of his foot. There is also a dressing on his right foot.), warm - Routine Neurological Exam Present: alert, oriented X3 - Routine Psychiatric Exam Present: normal thought process Results - Labs CBC & Chem 7: 11/15/17 05:03 11/15/17 05:03 Assessment and Plan (1) Diabetes Current visit: No Status: Chronic (2) Cellulitis Current visit: Yes Status: Acute Assessment and Plan: Assessment and Plan - 11/15/17 1. Left infected diabetic foot wound with cellulitis and concern for osteomyelitis of the fifth metatarsal head. -MSSA and strep viridans on culture from November 03 -Dr. Cruz consulted-recommend Cefazolin started 11/11/17 -Dr. Kennedy consulted- I&D planned this afternoon 11/15/17 2. Right foot wound without obvious signs of infection -Continue to monitor closely. 3. Poorly controlled diabetes with hgb A1c of 9.1% -Blood sugars fairly well controlled. Continue on Lantus 52 units BID and Novolog 30 units with meals. -holding NovoLog while NPO; reduced Lantus to 40 units x1 on 11/15. 4. Coronary artery disease, HTN, Hyperlipidemia, asthma -h/o stents; Continue on asa and statin. -fairly well controlled on Metoprolol 25mg BID. Continue to monitor closely. -asthma stable on current medications 5. Possible allergic reaction with rash to penicillin, no difficulties breathing or blood pressure issues. Prophylaxis -Lovenox 40mg SQ daily -Zantac 150mg daily. DVT Prophylaxis: Lovenox GI Prophylaxis: Rantidine Resuscitation Status: Full Code - Physician Narrative Physician: Maribel Hyatt MD Narrative: Date: 11/15/17 Time: 1605 I have independently evaluated and examined this patient. I reviewed the chart, the patient's history, and the CANDY SEPARATOR ENROBING/PA's documented findings as above. We discussed and formulated the assessment and plan as above with additions as below: Mr. Gonzalez is seen postoperatively. He was in good spirits and indicated nothing would make him happier than if I could discharge him "right now". He does not believe additional debridement will be necessary. His only complaint at time of my exam was of leak in the wound VAC causing repetitive beeping. He describes progressive improvement in pain control since admission but persistent erythema in the left lateral foot although the area of erythema has decreased. NAD, alert Respirations nonlabored, good airflow, breath sounds clear Erythema in a rounded area approximately 8 cm in size along the anterior- lateral left foot, wound VAC in place. CRP 29.1 from 89.23 days ago. Blood sugars well controlled Will discuss whether there are additional surgical plans with Dr. Kennedy and possible outpatient antibiotics/wound VAC with Dr. Cruz/case management tomorrow. Unclear if the small foreign body in the foot needs to be removed-will discuss further with Dr. Kennedy. Osteomyelitis described surgically, bone biopsy pending. Hospital Course Summary Disclaimer: The visit summary below is not to be considered part of the above Progress Note. Hospital Course: 11/12/[address] Cruz. WBC normal but CRP is elevated at 89. Dr. Kennedy consulted Discussed rationale for carbohydrate controlled diet and controlling blood sugars - pt is not interested in discussing options with dietitian. Daily kcal increased from 2000 to 2400. BGM are consistently elevated - increase long and short-acting insulin. MRI on 11/12/17: Impression: Limited exam due to the metallic foreign body in the lateral plantar soft tissues. Despite this limitation there does appear to be osteomyelitis involving the fifth metatarsal head and potentially the proximal phalanx of the fifth toe 11/13/17 - Foot xray demonstrates linear metallic foreign body in the plantar soft tissues beneath the fourth metatarsal base 11/14/17 Left infected diabetic foot wound with cellulitis and concern for osteomyelitis. MSSA and strep viridans on culture from November 03. Some extension of erythema beyond skin markings noted to dorsal foot. Dr. Kennedy - Plan to take to OR for I&D. Poorly controlled diabetes with hgb A1c of 9.1%. Blood sugars fairly well controlled. Continue on Lantus 52 units BID and Novolog 30 units with meals. Patient request for brown sugar with oatmeal in morning was authorized. Sliding scale insulin as indicated. 11/15/17 - I&D per Dr. Kennedy
[2017-11-15] MEDS ORDERED: BUPIVACAINE 0.5%/EPI 1:200,000 INJ 30ml SDV ONE (11:15)
[2017-11-15] MEDS: LR 1,000 ML IV SCH (11:18)
--- NOTE | 2017-11-15 11:27 | Anesthesia Preoperative Report ---
Anesthesia Preoperative Record - Date and Time Date: 11/15/17 Preoperative Diagnosis: Diabetic w/Cellulitis Proposed Procedure: Plantar foot wound debridement NPO Since Date: 11/15/17 NPO Since Time: 00:00 Allergies/Adverse Reactions: Allergies Allergy/AdvReac Type Severity Reaction Status Date / Time Iodinated Contrast- Oral and AdvReac Unknown N/V Verified 11/11/17 00:11 IV Dye - Vital Signs Vital Signs: Temperature 98.1 F 11/15/17 11:11 Pulse Rate 58 L 11/15/17 11:11 Respiratory Rate 16 11/15/17 11:11 Blood Pressure 135/65 11/15/17 11:11 Pulse Oximetry 94 11/15/17 11:11 Height and Weight: Height 6 ft 3 in Weight 146.9 kg Body Mass Index 40.5 - Medications Inpatient Medications: Current Medications Acetaminophen (Tylenol) 650 mg PO Q5H PRN PRN Reason: Discomfort Last Admin: 11/13/17 09:01 Dose: 650 mg Acetaminophen/Aspirin/Caffeine (Excedrin Xs) 2 tab PO Q6HR PRN PRN Reason: Headache Last Admin: 11/14/17 23:25 Dose: 2 tab Albuterol Sulfate (Proventil Neb (0.083%)) 2.5 mg AEROSOL Q4H PRN Aspirin (Asa) 81 mg PO DAILY [facility] Last Admin: 11/15/17 08:44 Dose: 81 mg Calcium Carbonate (Tums Extra Strength) 750 mg PO Q3-4HR PRN PRN Reason: Heartburn/indigestion Dextrose (D50%W) 10 ml IVP PRN PRN PRN Reason: Hypoglycemia Docusate Sodium (Colace) 100 mg PO BID PRN Enoxaparin Sodium (Lovenox) 40 mg SQ DAILY [facility] Last Admin: 11/15/17 08:29 Dose: Not Given Fenofibrate (Lofibra) 160 mg PO WB [facility] Last Admin: 11/15/17 08:45 Dose: 160 mg Fexofenadine HCl (Barb) 180 mg PO DAILY [facility] Last Admin: 11/15/17 08:48 Dose: 180 mg Glucose (Glutose 15) 37.5 gm PO PRN PRN PRN Reason: Hypoglycemia Cefazolin Sodium 2 g/ Sodium (Chloride) 100 mls @ 200 mls/hr IV Q8HR [facility] Last Infusion: 11/15/17 10:25 Dose: Infused Lactated Ringer's (Lactated Ringers) 1,000 mls @ 30 mls/hr IV .Q24H [facility] Last Admin: 11/15/17 11:18 Dose: 30 mls/hr Insulin Aspart (Novolog) 1 - 5 unit SQ SS PRN; Protocol PRN Reason: Hyperglycemia Last Admin: 11/12/17 21:20 Dose: 1 unit Insulin Aspart (Novolog) 30 unit SQ WM [facility] Last Admin: 11/15/17 07:22 Dose: Not Given Insulin Glargine (Lantus) 52 unit SQ BID [facility] Last Admin: 11/15/17 08:36 Dose: Not Given Levothyroxine Sodium (Synthroid) 50 mcg PO ACB [facility] Last Admin: 11/15/17 05:30 Dose: Not Given Magnesium Hydroxide (Mom) 30 ml PO DAILY PRN PRN Reason: Constipation Metoprolol Tartrate (Lopressor) 25 mg PO BIDBS [facility] Last Admin: 11/15/17 08:45 Dose: 25 mg Montelukast Sodium (Singulair) 10 mg PO DAILY [facility] Last Admin: 11/15/17 08:46 Dose: 10 mg Morphine Sulfate (Morphine Sulfate Inj) 2 mg IVP Q3H PRN PRN Reason: Breakthrough pain Last Admin: 11/12/17 11:48 Dose: 2 mg Ondansetron HCl (Zofran) 4 mg IVP Q6H PRN PRN Reason: Nausea &/or vomiting Oxycodone/Acetaminophen (Percocet 7.5/325) 1 tab PO Q4H PRN PRN Reason: Pain Last Admin: 11/14/17 00:49 Dose: 1 tab Polyethylene Glycol (Miralax) 17 gm PO DAILY [facility] Last Admin: 11/15/17 08:37 Dose: Not Given Ranitidine HCl (Zantac) 150 mg PO DAILY [facility] Last Admin: 11/15/17 08:45 Dose: 150 mg Fluticasone/Salmeterol (Advair Diskus) 1 puff ORAL INH BID [facility] Last Admin: 11/15/17 08:50 Dose: 1 puff Senna/Docusate Sodium (Senna Plus Tablet) 1 tab PO BID PRN PRN Reason: Constipation Simvastatin (Zocor) 20 mg PO HS [facility] Last Admin: 11/14/17 20:52 Dose: 20 mg Sodium Chloride (Normal Saline) 500 ml IV PRN PRN Last Admin: 11/15/17 09:55 Dose: 500 ml Sodium Chloride (Iv Flush) 10 ml IV PRN PRN PRN Reason: Flushing Last Admin: 11/14/17 19:26 Dose: 10 ml Zolpidem Tartrate (Ambien) 10 mg PO HS PRN PRN Reason: Insomnia Last Admin: 11/14/17 23:25 Dose: 10 mg Home Medications: Home Medications Medication Instructions Recorded Confirmed Type Liraglutide [Victoza 3-Damon] 1.8 mg SQ DAILY #9 12/10/14 11/10/17 History Krill Oil/[place]-3/Dha/Epa [Fish 1 cap PO DAILY #0 12/11/14 History Oil with Krill Softgel] Aspirin 1 tab PO DAILY #0 tab 08/13/15 11/10/17 History raNITIdine HCl [Ranitidine HCl] 150 mg PO DAILY #0 tab 08/13/15 11/10/17 History Insulin Degludec [Tresiba 104 units SQ .COMPLEX 11/10/17 11/10/17 History Flextouch U-200] Naproxen [Aleve] 440 mg PO DAILY 11/10/17 11/10/17 History Is Patient on Beta Cheryl?: Yes Beta Cheryl Last Dose Date/Time: 11/15/17 AM - Medical History Respiratory: Reports: Asthma (well controlled) Cardiovascular: Reports: Hypertension, Other (angioplasty and stenting) Gastrointestional: Reports: Gastroesophageal Reflux Disease (occasional), Morbid Obesity Neuro/Musculoskeletal: Reports: HX.MS.OSAR, Back Problems (BACK SURGERY IN 2012) , Headaches Renal/Endocrine: Reports: Diabetes Mellitus Type 2 (STEROID INDUCED) Other History: DENIES: Anesthesia Reactions, Now, Blood Transfusions, Chemotherapy , Cancer, Hemophilia, Malignant Hyperthermia, Sickle Cell Disease, Other - Surgical History Cardiac Surgeries/Treatments: Reports: Cardiac Catheterization (BALLOON & STENT 2014) Musculoskeletal Surgery/Tx: Reports: Knee Arthroscopy (2014), Orthopedic Surgery (BACK SURGERY) Anesthesia Reactions: None Hx Family Anesthesia Reaction: No History of Motion Sickness: No - Social History Smoking Status: Former smoker Substance Use Type: does not use Alcohol Intake Frequency: a few times a month - Pertinent Findings Laboratory: CBC and BMP 11/15/17 05:03 11/15/17 05:03 BMP 11/15/17 05:03 Sodium 138 Potassium 4.0 Chloride 104 Carbon Dioxide 25 BUN 15.0 Creatinine 0.9 Glucose 150 H Calcium 9.1 EKG: Sinus Bradycardia - Physical Exam Respiratory Exam: Present: lungs clear, bilateral breath sounds equal Cardiovascular Exam: Present: regular rate and rhythm, no murmur - Airway Assessment Mallampati Score: II TMD: 2 Fingerbreadths, 3 Fingerbreadths Neck Extension: fair Overall Assessment: may be difficult mask vent (thick valencia), may be difficult intubation - ASA ASA Score: 3 - Plan Anesthesia: General TIVA - Discussion Discussion: Discussed risks/options/alternatives of anesthesia and questions answered. Patient consents. Nursing pain assessment noted. Present for Discussion: other (none) Attestation Statement: Prior to the delivery of any anesthetic medication, I examined the patient, developed the plan, obtained the patient's consent and discussed the risk and benefits of the procedure with the patient/guardian. - Additional Information Seen by Anesthesia: Yes
[2017-11-15] MEDS ORDERED: FentaNYL 100 MCG/2 ML INJECTION ONE (11:37)
[2017-11-15] MEDS ORDERED: KETAMINE 500 MG/10 ML INJECTION ONE (11:38)
[2017-11-15] MEDS ORDERED: MIDAZOLAM 2mg/2ml INJECTION ONE (11:38)
[2017-11-15] MEDS ORDERED: PROPOFOL 500 MG/50 ML VIAL ONE (11:39)
--- NOTE | 2017-11-15 11:52 | Progress Note ---
DATE OF SERVICE 11/15/2017 FINDINGS Mr. Gonzalez is a 62-year-old gentleman whom I saw earlier this morning. Patient states that his pain has markedly improved over the course of the weekend. He states that the left foot continues to be "red and swollen." EXAM VITAL SIGNS: Afebrile, normotensive. Current vitals include temperature 96.3, pulse 56, respirations 16, blood pressure 138/83, SAO2 97% on room air. HEENT: Normocephalic. Pupils are equally round and react to light and accommodation. CHEST: Clear to auscultation bilaterally. HEART: Regular rate and rhythm. Normal S1 and S2 without gallops, murmurs or clicks. EXTREMITIES: Attention was focused to the left foot. The left foot does appear less edematous and erythematous in comparison to Wednesday. There is still, however, a moderate amount of erythema and edema involving the left foot laterally. The patient remains to have an open wound overlying the anatomic location of the fifth metatarsal head. Palpation does elicit some purulent drainage from this opening. The foot remains tender upon palpation. LABORATORY/RADIOGRAPHIC EVALUATION White count is 9.2. Hemoglobin is 13.9. BMP obtained and found to be without marked abnormalities. CRP is on a downward trend and is 29.1 today. CRP was 89.2 on the . I did review his MRI that revealed possible evidence for osteomyelitis. There is also a metallic foreign body noted within his left foot. Patient states that in the remote past he knew he had stepped on something involving his right foot. Patient, however, denied any history of knowing that there was a foreign body within his left foot. I also had ordered some plain films which were reviewed. The location of this foreign body appears to be at the base of the fourth metatarsal and not at the site of his open wound along the lateral fifth metatarsal head. ASSESSMENT 62-year-old gentleman with Ibanez grade 3 left diabetic foot ulceration. PLAN Wound exploration, excisional surgical debridement, possible removal of foreign body. I informed the patient at this time I would recommend that we take him to the operative suite and inject local anesthetic around his wound and provide conscious sedation so that the wound can be better explored and debrided. It was my recommendation that we simply explore the wound and proceed with any excisional surgical debridement of necrotic material. I informed the patient that if there is evidence for osteomyelitis involving the fifth metatarsal head that we may also perform debridement of bone and submit bone for culture and pathology. I informed the patient that if this wound would track to this foreign body that the foreign body would attempt to be removed at the same setting. If the wound, however, appears to be completely separate from the location of this foreign body I would not recommend proceeding with exploration in an attempt to remove this foreign body if it does not result in any complications at this time. The above plan was discussed with the patient. He understood and agreed. ROCK
--- NOTE | 2017-11-15 12:25 | General Surgery Procedure Note ---
Date of Procedure: 11/15/17 Surgeon: Marcia Ortho Tech: Dallas Cameron APRN Postoperative Diagnosis: cellulitis, diabetic foot ulcer, possible osteomyelitis left foot Procedure: excisional surgical debridement of skin, subcutaneous tissue and bone dorsum of left foot 5th metatarsal head Estimated Blood Loss: See Anesthesia Record.
--- NOTE | 2017-11-15 12:37 | Anesthesia Postoperative Note ---
- Date and Time Date: 11/15/17 Time: 12:37 - Status Patient Participated in Evaluation: Patient Participated in Person Vital Signs: Temperature 97.7 F 11/15/17 12:26 Pulse Rate 57 L 11/15/17 12:36 Respiratory Rate 16 11/15/17 12:36 Blood Pressure 116/61 11/15/17 12:36 Pulse Oximetry 92 11/15/17 12:36 Respiratory Function: Airway Patent Cardiovascular Function: Regular Pulse EKG: Sinus Rhythm Mental Status: Alert and Oriented Pain Intensity: 3 Hydration: IV Infusing Complications During Recover: None Apparent - Follow-Up Instructions Instructions: Per Surgeon
[2017-11-15] MEDS: MORPHINE SULFATE 4mg INJECTION IVP PRN ×2 (12:42→18:08)
[2017-11-15] MEDS: HYDROMORPHONE 2 MG/ML INJECTION IVP PRN ×2 (13:32→13:34)
--- NOTE | 2017-11-15 14:31 | Wound Care Progress Note ---
Wound Center Progress Note: Pt seen for placement of wound vac, seen with Miki TUCKER. Pt resting in bed, at bedside, rates pain in L foot /10. Pt premedicated before wound vac application. Wound to L 5th met head: 5.5 (L) x 2 (W) x 1/7 (D) with circumferential undermining at 1.6. Wound bed: exposed bone, red non- granulating tissue, no active drainage. Periwound: blanchable erythema. Veraflow feature used: instill 50 mL NS with a soak time of 5 minutes q 2 hrs. Vac is running at 125 mm Hg continuous low pressure. Trac pad bridged to L lateral lower leg, dressing collapsed, no leaks. Pt getting ready to eat lunch after dressing change. Wound vac dressing changes Wednesday and Fridays.
--- NOTE | 2017-11-15 14:36 | Wound Care Progress Note ---
Wound Management - Patient Status Premedicated Prior to Dressing Change: Yes - Wound Left Lateral Foot Wound Type: Surgical Incision Length: 5.5 Width: 2 Depth: 1.7 Wound Bed Appearance: Bone Tendon Cassandra Wound Appearance: [place], Edematous Undermining: Yes (Circumferential 1.6 cm) Drainage Amount: None Drainage Odor: No Odor Dressing Status: Changed Irrigant Solution: NS Packing Type: Woundvac Sponge Number of Packing Pieces Placed?: 2 Primary Dressing: Foam Dressing Secondary Dressing: Trac Pad Dressing Change Date: 11/15/17 Dressing Change Time: 14:00 Dressing Change Patient Tolerance: Tolerated Well (Veraflow wound vac, 125 mm Hg continuous low pressure, change M/F.) Microbiology: Microbiology 11/15/17 12:10 Foot, Left, Bone Surgical Culture - Preliminary Culture Initiated - Results Pending
[2017-11-15] MEDS: OXYCODONE/APAP 7.5 MG/325 MG TABLET PO PRN ×2 (16:44→21:16)
--- NOTE | 2017-11-15 17:22 | Operative Note ---
DATE OF PROCEDURE 11/15/2016 SURGEON Sammy Kennedy MD TOWER CRANE OPERATOR Dallas Cameron APRN PREOPERATIVE DIAGNOSIS Ibanez Grade 3 left diabetic foot ulcer. POSTOPERATIVE DIAGNOSIS Ibanez Grade 3 left diabetic foot ulcer. PROCEDURE Exploration of left diabetic foot ulceration with excisional surgical debridement of necrotic skin, subcutaneous tissues, fascia and bone. ANESTHESIA TIVA/local BRIEF HISTORY/INDICATIONS Mr. Gonzalez is a 62-year-old diabetic gentleman whom I was asked to see recently in consultation as the result of a wound involving his left foot. The patient had the misfortune of developing marked cellulitis/infection involving the left foot and was hospitalized for further care. MRI was obtained that did reveal evidence suggestive for osteomyelitis. The patient was also found to have a metallic foreign body just proximal to the base of the fourth metatarsal at a separate location. It was recommended to the patient to undergo exploration of this necrotic wound with additional excisional surgical debridement as indicated upon intraoperative findings. The patient understood and wished to proceed. DESCRIPTION OF PROCEDURE After Informed consent was obtained, the patient was brought to the operative suite and placed on the table in supine fashion. The left foot was then prepped and draped in sterile fashion. Formal time-out was then completed. Next 0.5% Marcaine with epinephrine was injected circumferentially around the open ulceration which was present overlying the anatomic location of the fifth metatarsal head. A hemostat was then able to be introduced into this opening that was on the order of about 5-8 mm in diameter and advanced up towards the base of the fifth toe as well as advanced proximally about 2-3 cm. The skin overlying the area of tunneling was opened with a knife. The incision itself was then about 5.5 in length. One could then see a fair amount of necrotic subcutaneous tissues and fascia. The necrotic tissue was grasped and retracted outwardly and excised sharply with a knife. Additionally, a sharp surgical curette was also utilized. The wound did not appear to tunnel where this foreign body was noted involving the midfoot region proximal to the fourth metatarsal. I elected therefore not to explore this area for it did not appear to be contiguous with the area of infection. A moderate amount of time was spent performing debridement of all necrotic tissue. Necrosis did extend down to the underlying enveloping fascia overlying the fifth metatarsal head. Fascia did not appear healthy and was also excised, exposing the underlying bone. The bone itself did not appear "to the naked eye" to be moth-eaten indicative for osteomyelitis. Nonetheless, utilizing a rongeur, multiple biopsies were obtained from the plantar aspect of the fifth metatarsal head and placed in a sterile container for pathologic evaluation as well as for bone culture. Hemostasis was then obtained within the wound with the use of electrocautery. Once all nonviable tissue had been debrided, the patient was awakened from his anesthetic and sent back to the recovery room once deemed in stable condition. Postoperatively, the patient will also undergo application of an Instill wound VAC to facilitate his ongoing care. ROCK
[2017-11-15] MEDS: INSULIN ASPART 100unit/ml INJECTION SQ PRN (18:21)
[2017-11-15] MEDS: SIMVASTATIN 20 MG TABLET PO SCH (21:15)
[2017-11-16] MEDS: APAP/ASA/Caffeine 1 TAB PO PRN (01:20)
[2017-11-16] MEDS: ZOLPIDEM 10 MG TABLET PO PRN (01:21)
[2017-11-16] MEDS: CEFAZOLIN 2 G in NS 100 ML IV SCH ×3 (01:21→17:24)
[2017-11-16] MEDS: OXYCODONE/APAP 7.5 MG/325 MG TABLET PO PRN (01:33)
[2017-11-16] MEDS: LEVOTHYROXINE 50 MCG TABLET PO SCH (06:18)
[2017-11-16] MEDS: INSULIN ASPART 100unit/ml INJECTION SQ SCH ×3 (08:27→18:39)
[2017-11-16] MEDS: ASPIRIN 81 MG CHEWABLE TABLET PO SCH (08:29)
[2017-11-16] MEDS: FENOFIBRATE 160 MG TABLET PO SCH (08:29)
[2017-11-16] MEDS: FEXOFENADINE 180 MG TABLET PO SCH (08:30)
[2017-11-16] MEDS: ENOXAPARIN 40 MG/0.4 ML INJECTION SQ SCH (08:30)
[2017-11-16] MEDS: MONTELUKAST 10 MG TABLET PO SCH (08:33)
[2017-11-16] MEDS: POLYETHYL GLYCOL 3350 17gm PACKET PO SCH (08:34)
[2017-11-16] MEDS: RANITIDINE 150 MG TABLET PO SCH (08:34)
[2017-11-16] MEDS: INSULIN GLARGINE 100unit/ml INJECTION SQ SCH ×2 (08:36→20:05)
--- NOTE | 2017-11-16 09:26 | General Surgery Progress Note ---
Subjective Patient reports: feels better, pain is less, tolerating a regular diet, voiding w/o difficulty Narrative: Majority of conversation today revolved around wanting to get home to reduce costs. He is in agreeable to twice a week wound clinic visits for vac change. Consult with Dr. Cruz has been placed for ID recommendations. Cultures from yesterday's extensive debridement are pending. - Vital Signs Last Vital Signs Temp 97.7 F 11/16/17 08:00 Pulse 59 L 11/16/17 08:00 Resp 16 11/16/17 08:00 BP 125/65 11/16/17 08:00 Pulse Ox 94 11/16/17 08:00 - Laboratory Result Diagrams: 11/16/17 03:55 11/16/17 03:55 - Microbiogy Microbiology 11/15/17 12:10 Foot, Left, Bone Gram Stain - Final 11/15/17 12:10 Foot, Left, Bone Surgical Culture - Preliminary Early growth - Normal Exam General: awake, alert, oriented, no acute distress Cardiovascular: regular rate Respiratory: clear bilaterally, no labored breathing Abdominal: soft, non-tender Psychiatric: normal affect (more pleasant mood today, states he is not is pain, which made him "grumpy" the other day) Assessment and Plan (1) Diabetic foot ulcer associated with type 2 diabetes mellitus Current Visit: Yes Status: Acute (2) Cellulitis Current Visit: Yes Status: Acute (3) Diabetes Current Visit: No Status: Chronic Qualifiers: Diabetes mellitus complication status: with other specified complication Diabetes mellitus residential insulin use: without residential use Plan: 11/16/2017 Surgery/Wound: Majority of conversation today revolved around wanting to get home to reduce costs. He is in agreeable to twice a week wound clinic visits for vac change. Consult with Dr. Cruz has been placed for ID recommendations. Cultures from yesterday's extensive debridement are pending. Wound be nice if he cold be discharged Wed or , with PICC if needed, and home vac. Hospital Course Summary Disclaimer: The visit summary below is not to be considered part of the above Progress Note. Hospital Course: 11/12/[address] Cruz. WBC normal but CRP is elevated at 89. Dr. Kennedy consulted Discussed rationale for carbohydrate controlled diet and controlling blood sugars - pt is not interested in discussing options with dietitian. Daily kcal increased from 2000 to 2400. BGM are consistently elevated - increase long and short-acting insulin. MRI on 11/12/17: Impression: Limited exam due to the metallic foreign body in the lateral plantar soft tissues. Despite this limitation there does appear to be osteomyelitis involving the fifth metatarsal head and potentially the proximal phalanx of the fifth toe 11/13/17 - Foot xray demonstrates linear metallic foreign body in the plantar soft tissues beneath the fourth metatarsal base 11/14/17 Left infected diabetic foot wound with cellulitis and concern for osteomyelitis. MSSA and strep viridans on culture from November 03. Some extension of erythema beyond skin markings noted to dorsal foot. Dr. Kennedy - Plan to take to OR for I&D. Poorly controlled diabetes with hgb A1c of 9.1%. Blood sugars fairly well controlled. Continue on Lantus 52 units BID and Novolog 30 units with meals. Patient request for brown sugar with oatmeal in morning was authorized. Sliding scale insulin as indicated. 11/15/17 - Surgical debridement and wound vac placement per Dr. Kennedy 11/16/2017 Surgery/Wound: Majority of conversation today revolved around wanting to get home to reduce costs. He is in agreeable to twice a week wound clinic visits for vac change. Consult with Dr. Cruz has been placed for ID recommendations. Cultures from yesterday's extensive debridement are pending. Wound be nice if he cold be discharged Wed or , with PICC if needed, and home vac.
[2017-11-16] MEDS: SALINE FLUSH 10ml SYRINGE IV PRN (17:20)
[2017-11-16] MEDS: NS FLUSH BAG 500ml IV PRN (17:21)
[2017-11-16] MEDS: INSULIN ASPART 100unit/ml INJECTION SQ PRN ×2 (18:01→21:08)
--- NOTE | 2017-11-16 18:46 | Progress Note ---
DATE OF SERVICE 11/16/2017 FINDINGS The patient is without complaints today. Denies significant pain involving his left foot. EXAM VITAL SIGNS: Please refer to EMR. EXTREMITIES: Attention was focused to the left extremity. There is less erythema and less edema noted. Wound VAC is in place and functioning. ASSESSMENT 62-year-old male with left diabetic foot ulcer, status post exploration of wound with excisional surgical debridement of necrotic skin, subcutaneous tissues, fascia and bone biopsy for pathology and culture. Patient currently doing well. PLAN Continue with current antibiotic therapy. From a general surgical/wound standpoint I do believe the patient could be discharged once arrangements have been made for ongoing outpatient intravenous antibiotics. We can manage his wound VAC through the wound center. The wound VAC will need to be changed on a Wednesday/Wednesday schedule. Arrangements will be needed for the patient to have a home VAC upon discharge. ROCK
[2017-11-16] MEDS: LR 1,000 ML IV SCH (20:06)
[2017-11-16] MEDS: SIMVASTATIN 20 MG TABLET PO SCH (20:06)
[2017-11-16] MEDS ORDERED: MORPHINE SULFATE 2mg INJECTION IVP PRN (22:51)
--- NOTE | 2017-11-16 22:54 | Progress Note ---
- Date 11/16/17 Subjective: Denzel was sleeping when seen about noon today and reported that he didn't rest well overnight. He is having virtually no pain in his foot until he stands at which time pain increases; minimal pain medication is being utilized. He denies dyspnea, chest pain, palpitations, nausea, or fever. Objective Vital signs: Temperature 98.6 F 11/16/17 18:01 Pulse Rate 60 11/16/17 18:01 Respiratory Rate 16 11/16/17 19:16 Blood Pressure 123/65 11/16/17 18:01 Pulse Oximetry 93 -room air 11/16/17 18:01 NAD, drowsy but responds appropriately Respirations nonlabored, good airflow, breath sounds clear Regular rhythm, S1-S2 Abdomen soft, nontender, obese, bowel sounds present Trace edema bilateral lower extremities, wound VAC left anterolateral foot Height/Weight/BMI: Height 1.91 m Weight 146.8 kg Body Mass Index 40.5 Results - Labs CBC & Chem 7: 11/16/17 03:55 11/16/17 03:55 Labs: Blood sugars [phone] Microbiology Results: Microbiology 11/15/17 12:10 Foot, Left, Bone Gram Stain - Final 11/15/17 12:10 Foot, Left, Bone Surgical Culture - Preliminary Early growth Assessment and Plan (1) Diabetic foot ulcer associated with type 2 diabetes mellitus Current visit: Yes Status: Acute (2) Osteomyelitis due to type 2 diabetes mellitus Problem details: Left fifth metatarsal head; POA Current visit: Yes Status: Acute Assessment and Plan: Assessment: Left infected diabetic foot wound with cellulitis, MSSA/strep viridans Osteomyelitis left fifth metatarsal Right foot wound, without evidence of infection Diabetes mellitus, type II-A1c 9.1, on insulin chronically Coronary artery disease, history stents Hypertension Hyperlipidemia Asthma Plan: Bone culture with preliminary growth; surgical findings reviewed with Dr. Cruz who indicated prolonged course antibiotics will be needed as anticipated. PICC line to be placed. Plans for outpatient antibiotics and wound VAC discussed with case management. Patient expressed concern about diabetes control and asked about additional information regarding diet; he indicated that the biggest barrier to controlling diabetes for him is not eating regular meals. Briefly discussed possibility of carb counting and adjusting insulin to his meal schedule rather than meals to set insulin. Diabetes education and dietitian asked to reconsult. Overall diabetes control slowly improving. Blood pressure stable. History possible allergic reaction with rash to penicillin, no difficulties breathing or blood pressure issues. DVT Prophylaxis: Lovenox GI Prophylaxis: Rantidine Resuscitation Status: Full Code - Physician Narrative Narrative: Date: 11/16/17 Time: 2250 Hospital Course Summary Disclaimer: The visit summary below is not to be considered part of the above Progress Note. Hospital Course: 11/12/[address] Cruz. WBC normal but CRP is elevated at 89. Dr. Kennedy consulted Discussed rationale for carbohydrate controlled diet and controlling blood sugars - pt is not interested in discussing options with dietitian. Daily kcal increased from 2000 to 2400. BGM are consistently elevated - increase long and short-acting insulin. MRI on 11/12/17: Impression: Limited exam due to the metallic foreign body in the lateral plantar soft tissues. Despite this limitation there does appear to be osteomyelitis involving the fifth metatarsal head and potentially the proximal phalanx of the fifth toe 11/13/17 - Foot xray demonstrates linear metallic foreign body in the plantar soft tissues beneath the fourth metatarsal base 11/14/17 Left infected diabetic foot wound with cellulitis and concern for osteomyelitis. MSSA and strep viridans on culture from November 03. Some extension of erythema beyond skin markings noted to dorsal foot. Dr. Kennedy - Plan to take to OR for I&D. Poorly controlled diabetes with hgb A1c of 9.1%. Blood sugars fairly well controlled. Continue on Lantus 52 units BID and Novolog 30 units with meals. Patient request for brown sugar with oatmeal in morning was authorized. Sliding scale insulin as indicated. 11/15/17 - Surgical debridement and wound vac placement per Dr. Kennedy 11/16/2017 Surgery/Wound: Majority of conversation today revolved around wanting to get home to reduce costs. He is in agreeable to twice a week wound clinic visits for vac change. Consult with Dr. Cruz has been placed for ID recommendations. Cultures from yesterday's extensive debridement are pending. Wound be nice if he cold be discharged Wed or Thurs, with PICC if needed, and home vac. 11/16/17 Bone culture with preliminary growth; surgical findings reviewed with Dr. Cruz who indicated prolonged course antibiotics will be needed as anticipated. PICC line to be placed. Additional diabetes education being provided.
[2017-11-17] MEDS: CEFAZOLIN 2 G in NS 100 ML IV SCH ×2 (00:50→08:58)
[2017-11-17] MEDS: APAP/ASA/Caffeine 1 TAB PO PRN (02:26)
[2017-11-17] MEDS: ZOLPIDEM 10 MG TABLET PO PRN (02:27)
[2017-11-17] MEDS: LEVOTHYROXINE 50 MCG TABLET PO SCH (06:20)
[2017-11-17] MEDS ORDERED: MORPHINE SULFATE 4mg INJECTION IVP PRN (06:30)
[2017-11-17 07:58] VITALS: BP 119/53; PULSE 67; TEMP 96.8; O2SAT 93
[2017-11-17] MEDS: INSULIN ASPART 100unit/ml INJECTION SQ SCH ×2 (08:50→13:29)
[2017-11-17] MEDS: FENOFIBRATE 160 MG TABLET PO SCH (08:58)
[2017-11-17] MEDS: ASPIRIN 81 MG CHEWABLE TABLET PO SCH (08:58)
[2017-11-17] MEDS: RANITIDINE 150 MG TABLET PO SCH (08:58)
[2017-11-17] MEDS: ENOXAPARIN 40 MG/0.4 ML INJECTION SQ SCH (08:58)
[2017-11-17] MEDS: ACETAMINOPHEN 325 MG TABLET PO PRN (08:58)
[2017-11-17] MEDS: POLYETHYL GLYCOL 3350 17gm PACKET PO SCH (08:59)
[2017-11-17] MEDS: FEXOFENADINE 180 MG TABLET PO SCH (08:59)
[2017-11-17] MEDS: INSULIN GLARGINE 100unit/ml INJECTION SQ SCH (08:59)
[2017-11-17] MEDS: MONTELUKAST 10 MG TABLET PO SCH (09:00)
--- NOTE | 2017-11-17 09:13 | ID Progress Note ---
Subjective Date: 11/17/17 Subjective: Mr. Gonzalez is tolerating his antibiotic without problems. He underwent surgical debridement last Wednesday. He had a PICC placed yesterday. He is hoping to go home soon. He denies any nausea or diarrhea. Exam Vital Signs: Temperature 96.8 F 11/17/17 07:57 Pulse Rate 67 11/17/17 07:57 Respiratory Rate 18 11/17/17 07:57 Blood Pressure 119/53 11/17/17 07:57 Pulse Oximetry 93 11/17/17 07:57 Height/Weight/BMI: Height 1.91 m Weight 146.2 kg Body Mass Index 40.5 - Constitutional Present: no acute distress, well nourished, well developed - Routine HEENT Exam Head: Present: normocephalic, atraumatic Eye: Present: EOMI, PERRL ENT: Present: mucous membranes moist, oropharynx clear - Routine Neck Exam Present: supple - Routine Respiratory Exam Present: CTA bilaterally - Routine Cardiovascular Exam Present: RRR - Routine Abdominal Exam Present: soft, normoactive bowel sounds - Routine Extremities Exam Absent: cyanosis, clubbing, edema Comments: RUE PICC line - Routine Skin Exam Present: intact. Absent: rash Comments: wound L lateral foot with wound VAC on - Routine Neurological Exam Present: alert, oriented X3, CN II-XII intact. Absent: motor deficit - Routine Psychiatric Exam Present: normal affect Results - Labs CBC & Chem 7: 11/16/17 03:55 11/16/17 03:55 Microbiology Results: Microbiology 11/15/17 12:10 Foot, Left, Bone Gram Stain - Final 11/15/17 12:10 Foot, Left, Bone Surgical Culture - Preliminary Early growth - Impressions MRI 11/12/17: Impression: Limited exam due to the metallic foreign body in the lateral plantar soft tissues. Despite this limitation there does appear to be osteomyelitis involving the fifth metatarsal head and potentially the proximal phalanx of the fifth toe. Impression: Diabetic foot infection L foot with cellulitis. S/p debridement on 11/03/17. Outpatient wound culture 11/03 with MSSA, S. viridans. X-ray 10/26 L foot with small metallic object (?staple) but this is located more posterior than where his wound is. Osteomyelitis L 5th MT, s/p debridement 11/15/17. Wound culture pending. Path specimen was suggestive of osteomyelitis. Diabetic foot infection R great toe, appears superficial. Wound culture with MSSA from 11/03. DM II, IR Obesity Hypothyroidism Asthma with h/o prolonged prednisone use S/p R TKA Rash presumed secondary to Zosyn, resolved Recommendation: Recommend Ancef 2gm IV q8 hours x 6 weeks through 12/27/17. He thinks that his can help him self-administer this at home. I'll see him in follow up in the Wound Clinic. He will need routine PICC cares, weekly CBC with diff, CMP, CRP and ESR.
[2017-11-17 10:18] VITALS: RESP 16
[2017-11-17] MEDS: INSULIN ASPART 100unit/ml INJECTION SQ PRN (11:21)
--- NOTE | 2017-11-17 13:55 | Wound Care Progress Note ---
Wound Management - Wound Left Foot Wound Type: Diabetic Foot Ulcer Wound Present on Admission?: Yes Length: 5 Width: 2 Depth: 2 Wound Bed Appearance: Beefy Red Cassandra Wound Appearance: Macerated Tunneling: No Undermining: No Drainage Description: Serosanguineous Drainage Amount: Moderate Drainage Odor: No Odor Dressing Status: Changed Packing Type: Woundvac Sponge Number of Packing Pieces Removed?: 1 Number of Packing Pieces Placed?: 1 Primary Dressing: Transparent Drape Secondary Dressing: Trac Pad Dressing Change Date: 11/17/17 Dressing Change Time: 13:54 Dressing Change Patient Tolerance: Tolerated Well (Pt will be in on 11/19 for first follow in wound clinic.) Microbiology: Microbiology 11/15/17 12:10 Foot, Left, Bone Gram Stain - Final 11/15/17 12:10 Foot, Left, Bone Surgical Culture - Preliminary Staphylococcus aureus
--- NOTE | 2017-11-17 14:56 | Discharge Summary ---
Discharge Information Date of admission: 11/10/17 19:13 Anticipated date of discharge: 11/17/17 Attending Physician: Maribel Hyatt MD Primary care physician: Piero Nevarez DO Consults: 11/11/17 18:33 Physician Consult [CONS] Routine Consulting Provider: Annette Cruz Reason For Exam: infected diabetic foot wound/cellulitis 11/11/17 18:34 Physician Consult [CONS] Routine Consulting Provider: Sammy Kennedy Reason For Exam: infected diabetic foot wound 11/15/17 13:01 Wound Vein Clinic Consult [CONS] Routine Reason for consultation: instill vac plantar aspect left foot Inpatient Diabetic Consult [CONS] Routine Diabetic Diagnosis: E11.65 Uncontrolled T2 DM Diabetic Training: Carb Counting - Discharge Diagnosis (1) Diabetic foot ulcer associated with type 2 diabetes mellitus Status: Acute (2) Osteomyelitis due to type 2 diabetes mellitus Status: Acute Left infected diabetic foot wound with cellulitis, MSSA/strep viridans Osteomyelitis left fifth metatarsal Right foot wound, without evidence of infection Diabetes mellitus, type II-A1c 9.1, on insulin chronically Coronary artery disease, history stents Hypertension Hyperlipidemia Asthma - Procedures Procedures: DATE OF PROCEDURE 11/15/2016 PROCEDURE Exploration of left diabetic foot ulceration with excisional surgical debridement of necrotic skin, subcutaneous tissues, fascia and bone. - Laboratory Labs: 11/16/17 03:55 11/16/17 03:55 - Microbiology Microbiology 11/15/17 12:10 Foot, Left, Bone Gram Stain - Final 11/15/17 12:10 Foot, Left, Bone Surgical Culture - Preliminary Staphylococcus aureus - Radiology Radiology: Date of Exam: 11/12/17 Indication: diabetic wound infection PROCEDURE: MR foot LT wo/w con: Findings: The metallic foreign body in the lateral plantar soft tissues, causes artifact, disrupting the normal magnetic field and limiting fat suppression in the lateral mid foot area. Unfortunately this is in the area of clinical concern. Despite this limitation there does appear to be abnormal T1 hypointense, T2 hyperintense signal and enhancement within the fifth metatarsal head and proximal phalanx of the fifth toe. There is adjacent soft tissue swelling and edema. The remaining bone marrow signal intensity is grossly normal. No acute fracture identified. The flexor and extensor tendons are grossly intact. Postcontrast images show no evidence of ring-enhancing abscess. There is significant plantar soft tissue thickening and induration below the fifth metatarsophalangeal joint. Impression: Limited exam due to the metallic foreign body in the lateral plantar soft tissues. Despite this limitation there does appear to be osteomyelitis involving the fifth metatarsal head and potentially the proximal phalanx of the fifth toe. Date of Exam: 11/13/17 Indication: foreign body PROCEDURE: XR foot LT min 3V: Findings: There is no acute fracture, dislocation or malalignment identified. Linear metallic foreign body is again noted in the plantar soft tissues beneath the fourth metatarsal base. Chronic hindfoot degenerative change. Impression: Unchanged appearance of the plantar foreign body. - Pathology Biopsy from left fifth metatarsal with chronic inflammation, focal minimal acute inflammation and bony resorption, suggestive of osteomyelitis History of Present Illness HPI: Denzel is a 62 y/o w/ DM, HTN, HLD, CAD s/p stents x 2 who presents to [facility] [place] direct admission from wound clinic. Patient had left foot treatment last Wed and on Wednesday/Sat started having pain and swelling in left foot which has progressed despite Rocephin and keflex on Wednesday. Patient denies cp, soa, f/c /s, n/v and other constitutional symptoms. Painful to walk Will admit to Hospitalist service for IV Abx and wound care and supportive care. Objective Vital signs: Temperature 96.8 F 11/17/17 07:57 Pulse Rate 67 11/17/17 07:57 Respiratory Rate 16 11/17/17 10:16 Blood Pressure 119/53 11/17/17 07:57 Pulse Oximetry 93 11/17/17 07:57 Height/Weight/BMI: Height 1.91 m Weight 146.2 kg Body Mass Index 40.5 - Constitutional Present: no acute distress, well nourished, well developed - Routine Respiratory Exam Present: CTA bilaterally. Absent: wheezes - Routine Cardiovascular Exam Present: RRR. Absent: murmur - Routine Abdominal Exam Present: soft, normoactive bowel sounds, non distended. Absent: tenderness - Routine Extremities Exam Present: edema (swelling to L foot. Wound vac/dressing intact.), normal capillary refill - Routine Skin Exam Present: dry, warm - Routine Neurological Exam Present: alert, oriented X3 - Routine Lymphatic Exam Lymphatic: Absent: adenopathy - Routine Psychiatric Exam Present: normal affect, cooperative Hospital Course This is a general summary of the patient's hospital course. For more details refer to the complete medical record. Hospital course: 11/10/17 Patient admitted for left infected diabetic foot ulcer. Started on Zosyn and vancomycin. 11/11/17 Zosyn discontinued due to development of rash on his left shoulder and chest. Dr. Mark Cruz, infectious disease, was consulted and recommended cefazolin 11/12/[address] Cruz. WBC normal but CRP is elevated at 89. Dr. Kennedy consulted Discussed rationale for carbohydrate controlled diet and controlling blood sugars - pt is not interested in discussing options with dietitian. Daily kcal increased from 2000 to 2400. BGM are consistently elevated - increase long and short-acting insulin. MRI on 11/12/17: Impression: Limited exam due to the metallic foreign body in the lateral plantar soft tissues. Despite this limitation there does appear to be osteomyelitis involving the fifth metatarsal head and potentially the proximal phalanx of the fifth toe 11/13/17 - Foot xray demonstrates linear metallic foreign body in the plantar soft tissues beneath the fourth metatarsal base Continue antibiotics 11/14/17 Left infected diabetic foot wound with cellulitis and concern for osteomyelitis. MSSA and strep viridans on culture from November 03. Dr. Kennedy -Plan to take to OR for I&D. 11/15/17 - Surgical debridement and wound vac placement per Dr. Kennedy 11/16/2017 Bone culture with preliminary growth; surgical findings reviewed with Dr. Cruz who indicated prolonged course antibiotics will be needed as anticipated. PICC line to be placed. Additional diabetes education being provided. 11/17/17 Patient discharged home following instructions on home administration of IV antibiotics. Dr. Cruz recommends Ancef 2 g IV every 8 hours through 12/27/17 for a total of 6 weeks. She will see him back in wound clinic in 3-4 weeks. He will come in for weekly PICC cares and labs. Dr. Kennedy recommends follow-up in the wound care clinic every Wednesday and Wednesday for wound VAC changes. Wound VAC was changed today. He is scheduled this [place] for follow-up in wound clinic. Time spent with patient: discharge greater than 30 minutes DVT Prophylaxis: SCD's, Lovenox GI Prophylaxis: Rantidine Discharge Plan - Discharge Disposition Discharge Date: 11/17/17 Disposition: Discharged Home, Self-Care *Condition: Stable Reason For Visit (Visit label in EMR): Diabetic w/Cellulitis - Discharge Medications *Discharge Medications: New PEG 3350 17gm PACKET [Miralax] 17 gm PO DAILY packet Cefazolin [Kefzol] 2 g IV Q8HR vial Oxycodone/Apap 7.5/325 [Percocet 7.5/325] 1 tab PO Q4H PRN #15 tab PRN Reason: Pain Continue raNITIdine HCl [Ranitidine HCl] 150 mg PO DAILY #0 tab Naproxen [Aleve] 440 mg PO DAILY Liraglutide [Victoza 3-Damon] 1.8 mg SQ DAILY #9 Krill Oil/[place]-3/Dha/Epa [Fish Oil with Krill Softgel] 1 cap PO DAILY #0 Aspirin 1 tab PO DAILY #0 tab Insulin Degludec [Tresiba Flextouch U-200] 104 units SQ .COMPLEX Ambien (zolpidem) 10 mg tablet 10 mg PO HS PRN #30 tab PRN Reason: PRN SLEEP blood sugar diagnostic strips See Dose Instructions .ROUTE .MEDSUPPLY #100 each Singulair (montelukast) 10 mg tablet 10 mg PO DAILY #90 tab fenofibrate 160 mg tablet 160 mg PO .QD #30 tab Zocor (simvastatin) 20 mg tablet 20 mg PO QAM #30 tab metoprolol tartrate 25 mg tablet 25 mg PO BID #180 tab Accucheck Smart View #100 each Novolog FlexPen (insulin aspart) 100 unit/mL PEN 30 unit SQ WM #15 ml levothyroxine 50 mcg tablet 50 mcg PO DAILY #90 tab Advair Diskus (Fluticasone 250 mcg-salmeterol 50 mcg)dose powdr for inhalation 1 puff INH BID #60 each pen needle, diabetic 31 gauge x 5/16" See Dose Instructions .ROUTE .MEDSUPPLY #100 each Discontinued [place] 7.5 mg-acetaminophen 325 mg tablet 1 tab PO Q6H PRN #20 tab PRN Reason: pain oxycodone-acetaminophen 5 mg-325 mg tablet 1 tab PO Q6H PRN #30 tab PRN Reason: pain Keflex (cephalexin) 500 mg capsule 500 mg PO QID 10 Days #40 cap - Discharge Packet/Instructions *Diet: diabetic, carbohydrate controlled *Activity: as tolerated *Pain Management/Treatment: Tylenol. Percocet prior to wound vac change if needed. *Wound Care: per wound care team Additional Instructions: You'll need to come to the infusion department weekly on Tuesdays for PICC line cares and lab draws. Wound VAC changes at the wound clinic will be Tuesdays and Fridays. Your IV antibiotics need to be given every 8 hours through 12/27/17. CHANGE HOME INSULIN DOSES FOLLOWS-Novolog 30 with breakfast, 32 with lunch and supper; increase Tresiba to 110 unita at bedtime. Monitor blood sugars fasting and 2 hrs after meals to permit further adjustment of insulin dosages; discuss follow-up with staff educator as an outpatient for further training on management with Dr. Nevarez. *Expected Signs/Symptoms: healing *Notify Physician if: wound vac isn't functioning, pain isn't controlled, you notice increasing redness or swelling around the wound *During Business Hours Contact: Wound care clinic *After Business Hours Contact: [facility] [phone] *Pending Lab/Results: Will review at F/U Appt - Referrals/Follow Up *Referrals/Follow Up: Annette Cruz MD [Physician] - (Appt with Dr. Cruz in wound care clinic on 12/15/17 at 10:00am) Piero Nevarez DO [Primary Care Provider] - 1 Week Wound Care[facility] [Non-Staff] - (Appointments November 19, 10:00am November 23, 9:00am) - Patient Handouts Patient Handouts: Diabetic Foot Ulcers (DC) - Dismissal Complete Discharge Instructions are:: Complete Physician Narrative - Narrative Physician: Maribel Hyatt MD Attestation Narrative: Date: 11/17/17 Time: 2049 I have independently evaluated and examined this patient. I reviewed the chart, the patient's history, and the [employer] CONSULTANT/PA's documented findings as above. We discussed and formulated the assessment and plan as above with additions as below: Denzel was seen midday and plans were discussed with Dr. Cruz. Patient reported speaking with the senior health educator yesterday and that he felt carb counting and adjusting his insulin to his meal schedule and meal content is something he would be very interested in but would need additional training before he could initiated. I recommended additional outpatient diabetes education before a decision is made and that he discuss this further with Dr. Nevarez. Blood sugars have continued to be modestly elevated and slight increase in basal insulin dose to 110 units and short acting insulin with lunch and supper were recommended (to 32 units); breakfast NovoLog was unchanged as he has relatively low carbohydrate intake with that meal. He otherwise reports pain control is fairly good. Home wound VAC has been coordinated. Examination revealed patient to be alert and in no distress there is no residual edema along the left anterior buenrostro and erythema has improved significantly over the dorsal foot. Respirations are nonlabored. Stable for discharge at this time.
--- NOTE | 2017-11-17 15:25 | Progress Note ---
DATE OF SERVICE 11/17/2017 FINDINGS Mr. Gonzalez today was without complaints. He states he is having less pain with his left foot. EXAM VITAL SIGNS: Afebrile, normotensive. Please refer to EMR. EXTREMITIES: Attention was focused to his left foot. Erythema and edema continue to improve on a daily basis. Palpation of the left foot does not elicit severe pain. LABORATORY/RADIOGRAPHIC EVALUATION Blood sugar was good at 1:58 this morning. ASSESSMENT A 62-year-old gentleman with foreign body involving left mid foot. Status post excisional surgical debridement of left diabetic foot ulcer with associated necrosis of skin, subcutaneous tissues and underlying fascia. Bone biopsy also performed and pending. PLAN I do believe the patient could be discharged from a general surgical/wound standpoint. I do see that Dr. Cruz has recommended Ancef 1 g IV q.h8. x 6 weeks. PICC line is in place to facilitate ongoing IV antibiotics. Once the patient has been approved for outpatient wound VAC therapy, would recommend changing VAC and discharging the patient at that time. Would recommend continuing wound VAC changes on a Wednesday/Wednesday schedule through our wound center or, if needed, home health care. Will continue to see the patient on an outpatient basis. [place]
== END 2017-11-17 13:30 | disposition home or self-care (01) | DRG 988 ==
LOC: SUATTDRO 19:13 → SRG 19:13
PROVIDERS: ADMIT Internal Medicine; ATTEND Internal Medicine